=== PATIENT | female | born 1975 | race Caucasian/White ===

== ENCOUNTER 2016-09-28 00:58 | Emergency (ER) | payer MEDICAID ==
[2016-09-28] MEDS ORDERED: KETOROLAC TROMETHAMINE 60 MG/2 ML SDV IM ONE (03:41)
[2016-09-28] MEDS ORDERED: SULFAMETHOXAZOLE/TRIMETHOPRIM 800-160 MG TABLET PO ONE (03:45)
--- NOTE | 2016-09-28 03:50 | ER Document Report ---
ED Skin Rash/Insect Bite/Abscs - General Chief Complaint: Abscess Stated Complaint: INSECT BITE-LOWER LEFT LEG PAIN Mode of Arrival: Ambulatory Information source: Patient Notes: Patient is a 41-year-old female who presents to the ER today for possible developing abscess on her left lower leg. Patient states that she thinks she was bitten by a spider because she has been bitten by spiders before , however she did not see a spider bite her this time. She denies any fevers, chills, drainage from the area. She states that it is painful. TRAVEL OUTSIDE OF THE [place] IN LAST 30 DAYS: No - Related Data Allergies/Adverse Reactions: hydrocodone bitartrate [From Vicodin] Allergy (Verified 09/28/16 01:04) tramadol [Tramadol] Allergy (Verified 09/28/16 01:04) Past Medical History - General Information source: Patient - Social History Smoking Status: Never Smoker Chew tobacco use (# tins/day): No Frequency of alcohol use: None Drug Abuse: None Family History: Reviewed & Not Pertinent Patient has suicidal ideation: No Patient has homicidal ideation: No - Past Medical History Cardiac Medical History: Denies: Hx Atrial Fibrillation, Hx Coronary Artery Disease, Hx Heart Attack, Hx Hypertension Pulmonary Medical History: Denies: Hx Asthma, Hx Bronchitis, Hx COPD, Hx Pneumonia Neurological Medical History: Reports: Hx Migraine, Hx Seizures. Denies: Hx Cerebrovascular Accident Endocrine Medical History: Reports: Hx Hypothyroidism. Denies: Hx Diabetes Mellitus Type 1, Hx Diabetes Mellitus Type 2 GI Medical History: Reports: Hx Gastroesophageal Reflux Disease Musculoskeltal Medical History: Denies Hx Arthritis Psychiatric Medical History: Reports: Hx Depression Past Surgical History: Reports: Hx Cholecystectomy - 07/08/12, Hx Tubal Ligation. Denies: Hx Pacemaker - Immunizations Hx Diphtheria, Pertussis, Tetanus Vaccination: Yes Review of Systems - Review of Systems Constitutional: No symptoms reported EENT: No symptoms reported Cardiovascular: No symptoms reported Respiratory: No symptoms reported Gastrointestinal: No symptoms reported Genitourinary: No symptoms reported Female Genitourinary: No symptoms reported Musculoskeletal: No symptoms reported Skin: See HPI Hematologic/Lymphatic: No symptoms reported Neurological/Psychological: No symptoms reported Physical Exam - Vital signs Vitals: Temp Pulse Resp BP Pulse Ox 97.7 F 111 H 20 127/81 H 100 09/28/16 01:04 09/28/16 01:04 09/28/16 01:04 09/28/16 01:04 09/28/16 01:04 - Notes Notes: PHYSICAL EXAMINATION: GENERAL: Well-appearing and in no acute distress. HEAD: Atraumatic, normocephalic. EYES: Pupils equal round and reactive to light, extraocular movements intact, sclera anicteric, conjunctiva are normal. NECK: Normal range of motion, supple without lymphadenopathy LUNGS: CTAB and equal. No wheezes rales or rhonchi. HEART: Regular rate and rhythm without murmurs EXTREMITIES: Normal range of motion, no pitting edema. No cyanosis. NEUROLOGICAL: Cranial nerves grossly intact. Normal sensory/motor exams. PSYCH: Normal mood, normal affect. SKIN: Warm, Dry, normal turgor, small sore to left lower anterior leg with no drainage, fluctuance or induration, mild erythema surrounding with excoriation present, 2 other small sores to left ankle Course - Re-evaluation Re-evalutation: 09/28/16 03:50 sore actually has more of the appearance of something pt picked at herself and caused, will place her on bactrim. She asked for dilaudid here in the ER but doesn't actually appear to be in any pain. - Vital Signs Vital signs: Temp Pulse Resp BP Pulse Ox 97.7 F 111 H 20 127/81 H 100 09/28/16 01:04 09/28/16 01:04 09/28/16 01:04 09/28/16 01:04 09/28/16 01:04 Discharge - Discharge Clinical Impression: Skin infection Condition: Stable Disposition: HOME, SELF-CARE Additional Instructions: Return immediately for any new or worsening symptoms. Follow up with primary care provider, call tomorrow to make followup appointment. Prescriptions: Sulfamethoxazole/Trimethoprim [Bactrim Ds Tablet] 1 each PO BID #20 tablet
[2016-09-28 04:19] VITALS: BP 123/80
== END 2016-09-28 04:10 | disposition home or self-care (01) ==
LOC: ER 00:58
DX: L08.9 Local infection of the skin and subcutaneous tissue, unspecified (principal); Z88.5 Allergy status to narcotic agent
CPT/HCPCS: 99282

== ENCOUNTER → 2016-11-21 | Day surgery (SDC) | payer MEDICAID ==
[~2016-11-21] MED LIST: DIAZEPAM 5 MG TABLET ONE
== END ==
LOC: RAD 12:59
PROVIDERS: ATTEND Orthopaedic Surgery
PROC: BQ00ZZZ Plain Radiography of Right Hip (ICD-10-PCS; principal; 2016-11-21)
DX: M25.551 Pain in right hip (principal)
CPT/HCPCS: 73722; 73525; 77002; A9576; J3490

== ENCOUNTER 2016-12-28 10:08 | Day surgery (SDC) | payer MEDICAID ==
[2016-12-21 08:53] LABS: ABSOLUTE EOSINOPHILS # (AUTO) 0.1 10^3/uL (0.0-0.6); ABSOLUTE LYMPHOCYTES (AUTO) 1.3 10^3/uL (0.5-4.7); ABSOLUTE MONOCYTES (AUTO) 0.3 10^3/uL (0.1-1.4); ABSOLUTE NEUT (AUTO) 2.8 10^3/uL (1.7-8.2); BASOPHILS % (AUTO) 0.8 % (0-2); HEMATOCRIT 38.1 % (36.0-47.0); HEMOGLOBIN 13.1 g/dL (12.0-15.5); HGB HCT DIFFERENCE 1.2; LYMPHOCYTES % (AUTO) 28.5 % (13-45); MEAN CORPUSCULAR HEMOGLOBIN 29.1 pg (27.0-33.4); MEAN CORPUSCULAR HGB CONC 34.3 g/dL (32.0-36.0); MEAN CORPUSCULAR VOLUME 85 fl (80-97); MONOCYTES % (AUTO) 6.2 % (3-13); RED BLOOD COUNT 4.49 10^6/uL (3.72-5.28); RED CELL DISTRIBUTION WIDTH 13.3 % (11.5-14.0); SEGMENTED NEUTROPHILS % (AUTO) 61.5 % (42-78); WHITE BLOOD COUNT 4.5 10^3/uL (4.0-10.5)
[2016-12-21 09:17] LABS: ANION GAP 16 (5-19); BLOOD UREA NITROGEN 9 mg/dL (7-20); CALCIUM 9.6 mg/dL (8.4-10.2); CARBON DIOXIDE 24 mmol/L (22-30); CHLORIDE 104 mmol/L (98-107); CREATININE RESULT 0.72 mg/dL (0.52-1.25); GLUCOSE 94 mg/dL (75-110); POTASSIUM 4.8 mmol/L (3.6-5.0); SODIUM 144.2 mmol/L (137-145)
--- NOTE | 2016-12-21 10:53 | EKG REPORT ---
SEVERITY:- BORDERLINE ECG - SINUS RHYTHM BORDERLINE T WAVE ABNORMALITIES : Confirmed by: Yomi Coronel 21-Dec-2016 10:52:49
[2016-12-21 18:35] LABS: APPEARANCE,URINE SLIGHTLY-CLOUDY; BILIRUBIN,URINE NEGATIVE (NEGATIVE); GLUCOSE, URINE NEGATIVE (NEGATIVE); KETONES,URINE NEGATIVE (NEGATIVE); LEUKOCYTE ESTERASE,URINE LARGE (NEGATIVE); NITRITE,URINE NEGATIVE (NEGATIVE); PROTEIN,URINE 30 mg/dL (NEGATIVE); URINE SPECIFIC GRAVITY 1.024
[~2016-12-28 10:08] MED LIST changes: +ACETAMINOPHEN 100 ML IV ONE; +BUPIVACAINE HCL 0.5 % INJ/PF 30 ML SDV ONE; +CEFAZOLIN 2 GM/D5W RTU 2 GM/50 ML RTUPB IV PRN; -DIAZEPAM 5 MG TABLET ONE; +EPINEPHRINE INJ/PF 1 MG/1 ML AMPULE ONE; +FENTANYL CITRATE INJ/PF 250 MCG/5 ML AMPULE ONE; +LIDOCAINE 0.5% INJ-PF (5 MG/ML) 50 ML SDV SUBCUT PRN; +MIDAZOLAM 2 MG/2 ML INJ ONE; +MORPHINE SULFATE 10 MG/ML INJ ONE; +PROPOFOL INJ 200 MG/20 ML VIAL IV ONE; +RINGERS SOLUTION,LACTATED 1,000 ML IV PRN
[2016-12-28 11:06] LABS: APPEARANCE,URINE SLIGHTLY-CLOUDY; BILIRUBIN,URINE NEGATIVE (NEGATIVE); GLUCOSE, URINE NEGATIVE (NEGATIVE); KETONES,URINE NEGATIVE (NEGATIVE); LEUKOCYTE ESTERASE,URINE TRACE (NEGATIVE); NITRITE,URINE NEGATIVE (NEGATIVE); PROTEIN,URINE NEGATIVE (NEGATIVE); URINE SPECIFIC GRAVITY 1.008; UROBILINOGEN,URINE NEGATIVE mg/dL (<2.0)
[2016-12-28] MEDS ORDERED: RINGERS SOLUTION,LACTATED 500 ML IV ONE (11:30)
[2016-12-28 12:25] LABS: FREE T3 3.68 pg/mL (2.77-5.27)
[2016-12-28] MEDS ORDERED: EPINEPHRINE INJ/PF 1 MG/1 ML AMPULE ONE (12:25)
[2016-12-28 12:38] LABS: THYROID STIMULATING HORMONE 8.73 uIU/mL (0.47-4.68)
[2016-12-28] MEDS ORDERED: MORPHINE SULFATE 10 MG/ML INJ IV PRN (14:11)
[2016-12-28] MEDS ORDERED: MEPERIDINE HCL/PF INJ 25 MG/1 ML DISP.SYRIN IV PRN (14:11)
[2016-12-28] MEDS ORDERED: FENTANYL CITRATE INJ/PF 100 MCG/2 ML AMPUL IV PRN ×3 (14:11)
[2016-12-28] MEDS ORDERED: PROMETHAZINE HCL INJ 25 MG/1 ML VIAL IV PRN ×2 (14:11)
[2016-12-28] MEDS ORDERED: DIPHENHYDRAMINE HCL 50 MG/ML VIAL IV PRN (14:11)
[2016-12-28] MEDS ORDERED: OXYCODONE-ACETAMINOPHEN 5-325 MG TABLET PO PRN ×2 (14:11)
[2016-12-28] MEDS: FENTANYL CITRATE INJ/PF 100 MCG/2 ML AMPUL ONE ×2 (15:05→15:10)
--- NOTE | 2016-12-28 15:36 | PDOC DISCHARGE SUMMARY ---
Discharge Summary (SDC) - Discharge Final Diagnosis: Status post right hip arthroscopy with labral repair, tendon lengthening, femoroplasty Date of Surgery: 12/28/16 Discharge Date: 12/28/16 Condition: Good Treatment or Instructions: Crutches for 4-6 weeks. Nonweightbearing 4-6 weeks. Change dressing on day 4. After changing dressing patient can shower. Applied a Band-Aid as needed after changing dressing Avoid external rotation and internal rotation of the hip and allowed to flex and extend hip tolerated Given instructions to call us if presented with increase bleeding redness, warmth, swelling or pain or drainage. Prescriptions: Oxycodone HCl/Acetaminophen [Percocet 5-325 mg Tablet] 1 - 2 tab PO ASDIR PRN # 60 tablet PRN Reason: Discharge Diet: As Tolerated Respiratory Treatments at Home: Deep Breathing/Coughing Discharge Activity: No Driving, No Lifting/Push/Pulling, Walk Frequently Home Care Assistance: None Needed Adaptive Devices on Discharge: Axillary Crutches Report the Following to Your Physician Immediately: Shortness of Breath, Vomiting, Increase in Pain, Yellow Skin, Fever over 101 Degrees, Unusual Bleeding, Redness, Swelling, Warmth, Increased Soreness, Drainage-Yellow, Drainage-Green, Drainage-Foul Smelling, Numbness
[2016-12-28] MEDS ORDERED: NEOSTIGMINE METHYLSULFATE 10 MG/10 ML VIAL ONE (15:53)
[2016-12-28] MEDS ORDERED: GLYCOPYRROLATE INJ 0.4 MG/2 ML VIAL ONE (15:53)
[2016-12-28] MEDS ORDERED: METOCLOPRAMIDE HCL INJ/PF 10 MG/2 ML SDV ONE (15:53)
[2016-12-28] MEDS ORDERED: DEXAMETHASONE SOD PHOSPHATE INJ 4 MG/1 ML VIAL ONE (15:53)
[2016-12-28] MEDS ORDERED: LIDOCAINE 2% INJ-PF (20 MG/ML) 10 ML AMPUL ONE (15:53)
[2016-12-28] MEDS ORDERED: ONDANSETRON HCL INJ/PF 4 MG/2 ML SDV ONE (15:53)
[2016-12-28] MEDS ORDERED: OXYCODONE-ACETAMINOPHEN 5-325 MG TABLET ONE (16:07)
[2016-12-28] MEDS ORDERED: ONDANSETRON 4 MG TAB.RAPDIS PO PRN (16:10)
[2016-12-28] MEDS ORDERED: ONDANSETRON 4 MG TAB.RAPDIS ONE (16:29)
[2016-12-28] MEDS ORDERED: OXYCODONE-ACETAMINOPHEN 5-325 MG TABLET PO ONE (16:30)
[2016-12-28 17:23] VITALS: BP 116/68
--- NOTE | 2017-01-16 10:16 | OPERATIVE REPORT E ---
Operative Report NAME: LATONYA BLANCO : 1975 AGE: 41Y DATE OF SURGERY: 12/28/2016 ROOM: PREOPERATIVE DIAGNOSIS: Right hip labral tear. POSTOPERATIVE DIAGNOSIS: Right hip labral tear. OPERATION: Right hip arthroscopy with labral repair x2 anchors, labral debridement, femoroplasty, iliopsoas tendon fractional lengthening. SURGEON: JOHN JACQUES M.D. COMPLICATIONS: None. DISPOSITION: Stable to PACU. IMPLANT USED: Arthrex BioComposite anchor x2. DESCRIPTION OF PROCEDURE: Patient was brought to the operating room, induced and intubated in a supine position. Patient was placed in the hip distraction system with a well-padded perineal post. Patient was placed, foot was secured, and then traction was applied. Under C-arm we were able to dislocate the right hip. We proceeded to prep and drape the right hip in a normal sterile surgical fashion. We proceeded then to do our first portal using a spinal needle and entering into the hip joint under C-arm guidance. Arthrogram was done showing proper placement. At this point I proceeded then to place a nitinol wire and remove the spinal needle. I used a #15 blade to establish the portal and then I proceeded to dilate the portal. The scope was introduced and then under direct visualization we were able to establish the anterior portal. Through the anterior portal I was able to do part of my arthrotomy anteriorly. I proceeded then to switch the scope into the anterior portal and the knife on the lateral portal and completed my arthrotomy. Once again I switched back using switching sticks and placed my camera in the lateral portal and worked through the anterior portal. Through the anterior portal I was able then to debride part of the labral tear and then on the detached portion I was able then to use the Hip Labral Scorpion to secure the torn labrum and secured them in SwiveLock. I drilled 2 tunnels and then placed 2 anchors, securing the labral tear portion. Through the anterior portal I was able then to expose the iliopsoas tendon and do fractional lengthening with the radiofrequency ablator. Once I was satisfied with the portion of surgery in the central compartment I released traction and then exposed the peripheral compartment where I exposed the small irregularity in the femoral neck. I used an oval bur to do then my femoroplasty which was done from anterior to posterior. Range of motion showed no impingement. At this point fluid from the hip was removed and the capsule was now closed. The 2 portal sites were closed with 3-0 nylon and then covered with Xeroform, 4 x 4 dressing and Medipore tape. Patient was then extubated and transferred to PACU in stable condition. DICTATING PHYSICIAN: Darren SHIELDS [id number] PHY#: [id number] ID: [id number] JOB#: [id number] ACCT: [id number] cc:JOHN JACQUES M.D. >
== END 2016-12-28 17:10 | disposition home or self-care (01) ==
LOC: OROUT 10:08
PROVIDERS: ATTEND Orthopaedic Surgery
PROC: 0QB74ZZ Excision of Left Upper Femur, Percutaneous Endoscopic Approach (ICD-10-PCS; 2016-12-28)
PROC: 0L8J4ZZ Division of Right Hip Tendon, Percutaneous Endoscopic Approach (ICD-10-PCS; 2016-12-28)
PROC: 0SQ94ZZ Repair Right Hip Joint, Percutaneous Endoscopic Approach (ICD-10-PCS; principal; 2016-12-28 12:30)
DX: M25.551 Pain in right hip (principal); M24.151 Other articular cartilage disorders, right hip; G40.909 Epilepsy, unspecified, not intractable, without status epilepticus; F90.9 Attention-deficit hyperactivity disorder, unspecified type; F31.9 Bipolar disorder, unspecified; F41.9 Anxiety disorder, unspecified; E06.3 Autoimmune thyroiditis; D64.9 Anemia, unspecified; Z88.5 Allergy status to narcotic agent; Z79.899 Other long term (current) drug therapy; Z79.891 Long term (current) use of opiate analgesic
CPT/HCPCS: 93005; 36415 ×2; 84439; 84443; 85025; 81025; 80048; 81001 ×2; 84481; 73501; 71020; 93010; 29916; 29914; 27299; J2250; J1100; J0171; S0119; J3010 ×2; J3490 ×2; J2765; J2270; J2405; J2704; J0690; J0131; 1202

== ENCOUNTER 2017-01-06 17:53 | Emergency (ER) | payer MEDICAID ==
[2017-01-06] MEDS ORDERED: ACETAMINOPHEN 325 MG TABLET PO ONE (18:28)
--- NOTE | 2017-01-06 18:51 | ER Document Report ---
ED Medical Screen (RME) - General Chief Complaint: Fall Stated Complaint: FALL/LEG PAIN Notes: Patient had right hip surgery by Dr. Farrar on December 28. Patient says that she was told she found some bone spurs and some ligament injury. She has some blue/ purple colored areas of the right leg that "come and go" since yesterday.. She has fallen 6 times today, two of those times landing on the right hip where she had the surgery. Since those falls, she's had intermittent numbness and tingling from the right hip and buttock area down to the anterior right thigh and to the knee, but no lower. Patient has much pain whenever the right hip is moved. She does have Percocets prescribed for pain. The purple/blue color that the patient is seeing looks like expected subcutaneous blood deposit around the sutured incision of the proximal anterior right thigh. I don't see any other colored areas now. Patient has no tenderness of the right lower leg. She has an excellent dorsalis pedis pulse in that foot. TRAVEL OUTSIDE OF THE [place] IN LAST 30 DAYS: No - Related Data Allergies/Adverse Reactions: tramadol [Tramadol] Allergy (Verified 12/20/16 08:57) Seizures hydrocodone bitartrate [From Vicodin] Adverse Reaction (Verified 12/20/16 08:57) Hives Past Medical History - Past Medical History Cardiac Medical History: Denies: Hx Atrial Fibrillation, Hx Coronary Artery Disease, Hx Heart Attack, Hx Hypertension Pulmonary Medical History: Denies: Hx Asthma, Hx Bronchitis, Hx COPD, Hx Pneumonia Neurological Medical History: Reports: Hx Migraine, Hx Seizures - LAST SEIZURE 1 YR AGO. Denies: Hx Cerebrovascular Accident Endocrine Medical History: Reports: Hx Hypothyroidism. Denies: Hx Diabetes Mellitus Type 1, Hx Diabetes Mellitus Type 2 Renal/ Medical History: Denies: Hx Peritoneal Dialysis GI Medical History: Reports: Hx Gastroesophageal Reflux Disease Musculoskeltal Medical History: Denies Hx Arthritis Psychiatric Medical History: Reports: Hx Depression Past Surgical History: Reports: Hx Cholecystectomy - 07/08/12, Hx Tubal Ligation. Denies: Hx Pacemaker - Immunizations Hx Diphtheria, Pertussis, Tetanus Vaccination: Yes Physical Exam - Vital signs Vitals: Temp Pulse Resp BP Pulse Ox 98.3 F 122 H 18 124/69 100 01/06/17 17:54 01/06/17 17:54 01/06/17 17:54 01/06/17 17:54 01/06/17 17:54 Course - Vital Signs Vital signs: Temp Pulse Resp BP Pulse Ox 98.3 F 122 H 18 124/69 100 01/06/17 17:54 01/06/17 17:54 01/06/17 17:54 01/06/17 17:54 01/06/17 17:54
[2017-01-06] MEDS ORDERED: NORMAL SALINE 1000 ML 1,000 ML IV ONE (19:20)
--- NOTE | 2017-01-06 19:20 | ER Document Report ---
HPI - HPI Patient complains to provider of: right anterior thigh and hip pain Onset: This afternoon Onset/Duration: Gradual Quality of pain: Throbbing Pain Level: 5 Context: 41-year-old female complaining of exacerbation of her postop daily right anterior hip pain. Dr. Farrar did a no head hit in labrum repair December 28. She uses crutches but slipped and fell today 6 times trying to get to the bathroom and get something to eat. Her daughter went back to work today. sHe takes 5 mg of Percocet 3 times a day. No head injury or headache. Associated Symptoms: None Exacerbated by: Movement Relieved by: Denies Similar symptoms previously: Yes Recently seen / treated by doctor: Yes - ROS ROS below otherwise negative: Yes Systems Reviewed and Negative: Yes All other systems reviewed and negative - REPRODUCTIVE LMP: [id number] Reproductive: DENIES: : - DERM Skin Color: Normal Past Medical History - General Information source: Patient - Social History Smoking Status: Unknown if Ever Smoked Frequency of alcohol use: None Drug Abuse: None Lives with: Family - Daughter Family History: Reviewed & Not Pertinent Patient has suicidal ideation: No Patient has homicidal ideation: No Neurological Medical History: Reports: Hx Migraine, Hx Seizures - LAST SEIZURE 1 YR AGO Endocrine Medical History: Reports: Hx Hypothyroidism Renal/ Medical History: Denies: Hx Peritoneal Dialysis GI Medical History: Reports: Hx Gastroesophageal Reflux Disease Psychiatric Medical History: Reports: Hx Depression Past Surgical History: Reports: Hx Cholecystectomy - 07/08/12, Hx Tubal Ligation - Immunizations Hx Diphtheria, Pertussis, Tetanus Vaccination: Yes Vertical Provider Document - CONSTITUTIONAL Agree With Documented VS: Yes Exam Limitations: No Limitations Notes: Looks dry - INFECTION CONTROL TRAVEL OUTSIDE OF THE [place] IN LAST 30 DAYS: No - HEENT HEENT: Normal ENT Exam - Except she looks dry and her mucous membranes - NECK Neck: Supple. negative: Lymphadenopathy-Left, Lymphadenopathy-Right - RESPIRATORY Respiratory: Breath Sounds Normal, No Respiratory Distress O2 Sat by Pulse Oximetry: 100 - CARDIOVASCULAR Cardiovascular: Regular Rate, Regular Rhythm - GI/ABDOMEN Gastrointestinal: Abdomen Soft, Abdomen Non-Tender - MUSCULOSKELETAL/EXTREMETIES Musculoskeletal/Extremeties: Tender, Eccymosis Notes: Soft tissue swelling with ecchymosis anterior surgery With no large hematoma, no erythema take either surgical sites. Nontender bone. X-ray is negative. - NEURO Level of Consciousness: Awake, Alert, Appropriate - DERM Integumentary: Warm, Dry Course - Re-evaluation Re-evalutation: 01/06/17 20:05 I discussed with the patient after looking her narcotic records up on the [place] controlled substance reporting that she was prescribed 10 mg of Percocet from Dr. Freeman 180 given every month. Her last prescription was filled on December 12 and she states she'll be running out of that in 2 days which is early. When I ask her originally how much pain medication she took for this she said she takes 5 mg 3 times a day. She then at this point tells me now it is really 15 mg 3 times a day and I told her that because of this I would not be giving her any narcotic pain medication while she was here in the emergency department. But I am giving her the IV fluid since she looks dehydrated. 01/06/17 21:14 Feels much better after IV fluid and she also ate a dinner that I heated up for her, pulse is 90 - Vital Signs Vital signs: Temp Pulse Resp BP Pulse Ox 98.3 F 122 H 18 124/69 100 01/06/17 17:54 01/06/17 17:54 01/06/17 17:54 01/06/17 17:54 01/06/17 17:54 Discharge - Discharge Clinical Impression: right leg brusing after fall, unsteady gait with the crutches, Dehydration Condition: Good Disposition: HOME, SELF-CARE Instructions: Contusion ([facility]), Dehydration ([facility]) Additional Instructions: Drink 2 L of water per day See Dr. Leni solo for follow-up Make sure you eat her meals to repair your hip I recommend using a walker instead of the crutches so you be more stable and won 't fall Return to the emergency room any concerns. Please complete the patient satisfaction survey if you get one, and return it.. If you do not receive a survey, then you can go to the [facility] website, [email or web address] and place your comments about your very good care. Thank you very much. It was a pleasure being your medical provider today. Prescriptions: Walker [Folding Walker] 1 each MC ASDIR PRN #1 each PRN Reason: Referrals: LIZETH JEFFERSON MD [Primary Care Provider] - Follow up as needed
[2017-01-06] MEDS ORDERED: OXYCODONE HCL IR 5 MG TABLET PO ONE (19:56)
[2017-01-06 21:05] VITALS: BP 108/61
== END 2017-01-06 21:40 | disposition home or self-care (01) ==
LOC: ER 17:53
DX: S80.11XA Contusion of right lower leg, initial encounter (principal); W01.0XXA Fall on same level from slipping, tripping and stumbling without subsequent striking against object, initial encounter; M25.551 Pain in right hip; R26.81 Unsteadiness on feet; E86.0 Dehydration; Z98.890 Other specified postprocedural states; Z79.891 Long term (current) use of opiate analgesic
CPT/HCPCS: 99283; 73502; J3490

== ENCOUNTER → 2017-01-07 | Outpatient (CLI) | payer MEDICAID ==
[2017-01-07 09:40] LABS: HEMOGLOBIN 10.3 g/dL (12.0-15.5); HGB HCT DIFFERENCE 0.9; MEAN CORPUSCULAR HEMOGLOBIN 29.3 pg (27.0-33.4); MEAN CORPUSCULAR HGB CONC 34.4 g/dL (32.0-36.0); MEAN CORPUSCULAR VOLUME 85 fl (80-97); RED BLOOD COUNT 3.53 10^6/uL (3.72-5.28); WHITE BLOOD COUNT 4.6 10^3/uL (4.0-10.5)
[2017-01-07 10:02] LABS: ALANINE AMINOTRANSFERASE 16 U/L (9-52); ALBUMIN 3.7 g/dL (3.5-5.0); ALKALINE PHOSPHATASE 51 U/L (38-126); ANION GAP 12 (5-19); ASPARTATE AMINO TRANSFERASE 20 U/L (14-36); BILIRUBIN,DIRECT 0.2 mg/dL (0.0-0.4); BILIRUBIN,TOTAL 0.3 mg/dL (0.2-1.3); BLOOD UREA NITROGEN 6 mg/dL (7-20); CALCIUM 8.6 mg/dL (8.4-10.2); CARBON DIOXIDE 25 mmol/L (22-30); CHLORIDE 108 mmol/L (98-107); CREATININE RESULT 0.53 mg/dL (0.52-1.25); Direct HDL 44 mg/dL (>40); GLUCOSE 91 mg/dL (75-110); POTASSIUM 4.5 mmol/L (3.6-5.0); SODIUM 144.7 mmol/L (137-145); TRIGLYCERIDES 67 mg/dL (<150)
[2017-01-07 10:13] LABS: DIRECT LDL 74 mg/dL (<100)
[2017-01-08 07:11] LABS: THYROXINE (T4) 3.7 ug/dL (4.5-12.0); VITAMIN D 25-HYDROXY 21.5 ng/mL (30.0-100.0)
== END ==
LOC: OD 09:03
DX: F31.81 Bipolar II disorder (principal)
CPT/HCPCS: 36415; 80053; 80061; 82306; 83036; 84436; 84443; 85027

== ENCOUNTER → 2017-07-08 | Outpatient (CLI) | payer MEDICAID ==
[2017-07-08 10:28] LABS: ABSOLUTE EOSINOPHILS # (AUTO) 0.1 10^3/uL (0.0-0.6); ABSOLUTE LYMPHOCYTES (AUTO) 1.6 10^3/uL (0.5-4.7); ABSOLUTE MONOCYTES (AUTO) 0.4 10^3/uL (0.1-1.4); ABSOLUTE NEUT (AUTO) 4.5 10^3/uL (1.7-8.2); BASOPHILS % (AUTO) 0.6 % (0-2); EOSINOPHILS % (AUTO) 2.3 % (0-6); HEMATOCRIT 34.8 % (36.0-47.0); HEMOGLOBIN 11.8 g/dL (12.0-15.5); HGB HCT DIFFERENCE 0.6; LYMPHOCYTES % (AUTO) 23.6 % (13-45); MEAN CORPUSCULAR HEMOGLOBIN 28.8 pg (27.0-33.4); MEAN CORPUSCULAR VOLUME 85 fl (80-97); MONOCYTES % (AUTO) 6.4 % (3-13); RED BLOOD COUNT 4.12 10^6/uL (3.72-5.28); RED CELL DISTRIBUTION WIDTH 14.2 % (11.5-14.0); SEGMENTED NEUTROPHILS % (AUTO) 67.1 % (42-78); WHITE BLOOD COUNT 6.6 10^3/uL (4.0-10.5)
[2017-07-08 10:59] LABS: ALANINE AMINOTRANSFERASE 23 U/L (9-52); ALBUMIN 4.4 g/dL (3.5-5.0); ALKALINE PHOSPHATASE 59 U/L (38-126); ANION GAP 10 (5-19); ASPARTATE AMINO TRANSFERASE 15 U/L (14-36); BILIRUBIN,DIRECT 0.4 mg/dL (0.0-0.4); BILIRUBIN,TOTAL 0.4 mg/dL (0.2-1.3); BLOOD UREA NITROGEN 10 mg/dL (7-20); CALCIUM 9.4 mg/dL (8.4-10.2); CARBON DIOXIDE 29 mmol/L (22-30); CHLORIDE 104 mmol/L (98-107); CHOLESTEROL 157.39 mg/dL (0-200); CREATININE RESULT 0.67 mg/dL (0.52-1.25); Direct HDL 55 mg/dL (>40); GLUCOSE 77 mg/dL (75-110); POTASSIUM 4.7 mmol/L (3.6-5.0); TOTAL PROTEIN 6.8 g/dL (6.3-8.2); TRIGLYCERIDES 97 mg/dL (<150)
[2017-07-08 11:10] LABS: DIRECT LDL 86 mg/dL (<100)
== END ==
LOC: OD 08:44
PROVIDERS: ATTEND Family Medicine Geriatric Medicine
DX: D64.9 Anemia, unspecified (principal); E03.9 Hypothyroidism, unspecified; E55.9 Vitamin D deficiency, unspecified; Z79.899 Other long term (current) drug therapy
CPT/HCPCS: 36415; 80053; 80061; 82306; 84443; 85025

== ENCOUNTER 2017-07-11 03:08 | Emergency (ER) | payer OTHER, MEDICAID ==
[2017-07-11] MEDS ORDERED: NALOXONE HCL INJ/PF 0.4 MG/1 ML SDV ONE (03:34)
[2017-07-11 03:57] LABS: ABSOLUTE EOSINOPHILS # (AUTO) 0.2 10^3/uL (0.0-0.6); ABSOLUTE LYMPHOCYTES (AUTO) 1.5 10^3/uL (0.5-4.7); ABSOLUTE MONOCYTES (AUTO) 0.9 10^3/uL (0.1-1.4); BASOPHILS % (AUTO) 0.3 % (0-2); EOSINOPHILS % (AUTO) 1.8 % (0-6); HEMATOCRIT 34.8 % (36.0-47.0); HEMOGLOBIN 12.1 g/dL (12.0-15.5); HGB HCT DIFFERENCE 1.5; LYMPHOCYTES % (AUTO) 13.9 % (13-45); MEAN CORPUSCULAR HEMOGLOBIN 29.1 pg (27.0-33.4); MEAN CORPUSCULAR HGB CONC 34.7 g/dL (32.0-36.0); MEAN CORPUSCULAR VOLUME 84 fl (80-97); MONOCYTES % (AUTO) 8.9 % (3-13); RED BLOOD COUNT 4.14 10^6/uL (3.72-5.28); SEGMENTED NEUTROPHILS % (AUTO) 75.1 % (42-78); WHITE BLOOD COUNT 10.6 10^3/uL (4.0-10.5)
[2017-07-11 04:22] LABS: ALANINE AMINOTRANSFERASE 32 U/L (9-52); ALBUMIN 4.6 g/dL (3.5-5.0); ALKALINE PHOSPHATASE 83 U/L (38-126); ANION GAP 11 (5-19); ASPARTATE AMINO TRANSFERASE 35 U/L (14-36); BILIRUBIN,DIRECT 0.3 mg/dL (0.0-0.4); BILIRUBIN,TOTAL 0.5 mg/dL (0.2-1.3); BLOOD UREA NITROGEN 6 mg/dL (7-20); CALCIUM 9.3 mg/dL (8.4-10.2); CARBON DIOXIDE 31 mmol/L (22-30); CHLORIDE 98 mmol/L (98-107); CREATININE RESULT 0.64 mg/dL (0.52-1.25); GLUCOSE 109 mg/dL (75-110); MAGNESIUM 2.1 mg/dL (1.6-2.3); POTASSIUM 4.2 mmol/L (3.6-5.0); SODIUM 139.8 mmol/L (137-145)
[2017-07-11 04:23] LABS: ALCOHOL < 10 mg/dL (NONE DETECTED)
--- NOTE | 2017-07-11 04:25 | ER Document Report ---
ED General - General Chief Complaint: Altered Mental Status Stated Complaint: ALTERED MENTAL STATUS Time Seen by Provider: 07/11/17 03:37 Mode of Arrival: Medic Information source: Patient, Relative, Emergency Med Personnel TRAVEL OUTSIDE OF THE [place] IN LAST 30 DAYS: No - HPI Notes: Patient is a 42-year-old female history of chronic pain and narcotic use and abuse presents the emergency department with report that she was at a green party for her friend last evening and then later was found by family after she came home unconscious on the bathroom floor. The patient had an abrasion on her face. There was no observed seizure activity, but there was a question if the patient may have had a seizure previously. The patient did not bite her tongue and she denies any headache or neck pain or chest pain or difficulty breathing or significant change in her chronic back pain. The patient initially was noted to be very somnolent and would trail off and her discussion, although her oxygen saturations and other vital signs were stable. Patient was given 0.2 mg of IV Narcan and She awakened and felt cold and was able to give a more relevant history. Patient denied any intentional overdose and reported no suicidal or homicidal ideation or hallucinations. - Related Data Allergies/Adverse Reactions: tramadol [Tramadol] Allergy (Verified 12/20/16 08:57) Seizures hydrocodone bitartrate [From Vicodin] Adverse Reaction (Verified 12/20/16 08:57) Hives Past Medical History - General Information source: Patient Cannot obtain history due to: Unstable vital signs - Social History Smoking Status: Former Smoker Frequency of alcohol use: Occasional Drug Abuse: Cocaine Lives with: Family Family History: Reviewed & Not Pertinent - Past Medical History Cardiac Medical History: Denies: Hx Atrial Fibrillation, Hx Coronary Artery Disease, Hx Heart Attack, Hx Hypertension Pulmonary Medical History: Denies: Hx Asthma, Hx Bronchitis, Hx COPD, Hx Pneumonia Neurological Medical History: Reports: Hx Migraine, Hx Seizures - LAST SEIZURE 1 YR AGO. Denies: Hx Cerebrovascular Accident Endocrine Medical History: Reports: Hx Hypothyroidism. Denies: Hx Diabetes Mellitus Type 1, Hx Diabetes Mellitus Type 2 Renal/ Medical History: Denies: Hx Peritoneal Dialysis GI Medical History: Reports: Hx Gastroesophageal Reflux Disease Musculoskeltal Medical History: Denies Hx Arthritis Psychiatric Medical History: Reports: Hx Depression Past Surgical History: Reports: Hx Cholecystectomy - 10/16/12, Hx Tubal Ligation. Denies: Hx Pacemaker - Immunizations Hx Diphtheria, Pertussis, Tetanus Vaccination: Yes Review of Systems - Review of Systems Notes: REVIEW OF SYSTEMS: CONSTITUTIONAL : Denies fever, chills, or sweats. EENT: Denies eye, ear, throat symptoms. Denies nasal or sinus congestion or discharge. Denies throat, tongue, or mouth swelling or difficulty swallowing. CARDIOVASCULAR: Denies chest pain. Denies palpitations or racing or irregular heart beat. Denies ankle edema. RESPIRATORY: Denies cough, cold, or chest congestion. Denies shortness of breath, difficulty breathing, or wheezing. GASTROINTESTINAL: Denies abdominal pain or distention. Denies nausea, vomiting , or diarrhea. Denies blood in vomitus, stools, or per rectum. Denies black, tarry stools. Denies constipation. GENITOURINARY: Denies difficulty urinating, painful urination, burning, frequency, blood in urine, or discharge. FEMALE GENITOURINARY: Denies vaginal bleeding, heavy or abnormal periods, irregular periods. Denies vaginal discharge or odor. MUSCULOSKELETAL: Denies back or neck pain or stiffness. Denies joint pain or swelling. SKIN: Denies rash, lesions or sores. HEMATOLOGIC : Denies easy bruising or bleeding. LYMPHATIC: Denies swollen, enlarged glands. NEUROLOGICAL: Denies dizziness or lightheadedness. Denies headache. Denies weakness or paralysis or loss of use of either side. Denies problems with gait or speech. Denies sensory loss, numbness, or tingling. Denies seizures. PSYCHIATRIC: Denies anxiety or stress. Denies depression, suicidal ideation, or homicidal ideation. ALL OTHER SYSTEMS REVIEWED AND NEGATIVE. Dictation was performed using [id number] voice recognition software Physical Exam - Vital signs Vitals: Pulse Ox 99 07/11/17 03:59 - Notes Notes: PHYSICAL EXAMINATION: GENERAL: Well-appearing, well-nourished and in no acute distress. HEAD: Contusion and abrasion over the nose, but no bony deformity or crepitance. The patient also may have bitten the inside edge of her upper lip, but there is no active bleeding or obvious significant laceration. EYES: Pupils equal round and reactive to light but are pinpoint on initial evaluation. extraocular movements intact, conjunctiva are normal. ENT: Nares patent, oropharynx clear without exudates. Moist mucous membranes. NECK: Normal range of motion, supple without lymphadenopathy LUNGS: Breath sounds clear to auscultation bilaterally and equal. No wheezes rales or rhonchi. HEART: Regular rate and rhythm without murmurs ABDOMEN: Soft, nontender, nondistended abdomen. No guarding, no rebound. No masses appreciated. Female : deferred Musculoskeletal: Normal range of motion, no pitting or edema. No cyanosis. NEUROLOGICAL: Cranial nerves grossly intact. Normal sensory, motor exams. initially patient had slurred speech., But this improved after Narcan. PSYCH: Normal mood, normal affect. SKIN: Warm, Dry, normal turgor, no rashes or lesions noted. Course - Re-evaluation Re-evalutation: 07/11/17 07:47 Patient was given 0.2 mg of Narcan. The patient was confronted about her narcotic use and her cocaine abuse. Patient was watched for several hours and had stable vital signs and good O2 sats. Patient was ambulatory without complaint. Discussion was undertaken with the patient further about possibly needing rehab and/or detox and other support measures. The patient politely declined. No evidence for acute intracranial injury or renal dysfunction or anemia or hypoglycemia. No suggestion for suicidality. Patient is not an eminent risk to herself or others at the current time. 07/11/17 07:48 - Vital Signs Vital signs: Temp Pulse Resp BP Pulse Ox 14 105/74 95 07/11/17 06:01 07/11/17 06:00 07/11/17 06:01 - Laboratory Result Diagrams: 07/11/17 03:49 07/11/17 03:49 Laboratory results interpreted by me: 07/11/17 07/11/17 07/11/17 03:49 03:49 04:15 WBC 10.6 H Hct 34.8 L Carbon Dioxide 31 H BUN 6 L Urine Blood LARGE H - EKG Interpretation by Me EKG shows normal: Sinus rhythm Additional EKG results interpreted by me: 07/11/17 04:24 EKG as interpreted by me showed sinus tachycardia heart rate of 111. There is no gross evidence for acute IN or ischemia identified. No significant change from previous EKG from 12/21/16. Discharge - Discharge Clinical Impression: Cocaine abuse Narcotic overdose Qualifiers: Encounter type: initial encounter Injury intent: accidental or unintentional Qualified Code(s): T40.601A - Poisoning by unspecified narcotics, accidental ( unintentional), initial encounter Altered mental status Qualifiers: Altered mental status type: unspecified Qualified Code(s): R41.82 - Altered mental status, unspecified Head injury Qualifiers: Encounter type: initial encounter Qualified Code(s): S09.90XA - Unspecified injury of head, initial encounter Facial abrasion Qualifiers: Encounter type: initial encounter Qualified Code(s): S00.81XA - Abrasion of other part of head, initial encounter Condition: Stable Disposition: HOME, SELF-CARE Instructions: Abrasions ([facility]), Cocaine Abuse ([facility]), Head Injury Precautions ( [facility]), Narcotic Abuse ([facility]) Additional Instructions: Stop using cocaine. Take your pain medications as instructed.
[2017-07-11 04:32] LABS: APPEARANCE,URINE CLEAR; BILIRUBIN,URINE NEGATIVE (NEGATIVE); GLUCOSE, URINE NEGATIVE (NEGATIVE); KETONES,URINE NEGATIVE (NEGATIVE); LEUKOCYTE ESTERASE,URINE NEGATIVE (NEGATIVE); NITRITE,URINE NEGATIVE (NEGATIVE); PROTEIN,URINE NEGATIVE (NEGATIVE); URINE SPECIFIC GRAVITY 1.003; UROBILINOGEN,URINE NEGATIVE mg/dL (<2.0)
[2017-07-11 04:46] LABS: URINE BARBITURATES SCREEN NEGATIVE; URINE METHADONE SCREEN NEGATIVE; URINE OPIATES LOW UNCONFIRMED POSITIVE; URINE PHENCYCLIDINE SCREEN NEGATIVE
[2017-07-11] MEDS ORDERED: NORMAL SALINE 1000 ML 1,000 ML IV ONE (05:14)
[2017-07-11] MEDS ORDERED: DIPH/PERTUSS(ACELL)/TETANUS VAC/PF 0.5 ML SYR (>=10YO) IM ONE (05:14)
[2017-07-11] MEDS ORDERED: BACITRACIN ZINC OINTMENT 15 GM TP ONE (05:15)
--- NOTE | 2017-07-11 06:00 | RADIOLOGY REPORT (SQ) ---
EXAM DESCRIPTION: CT HEAD WITHOUT COMPLETED DATE/TIME: 07/11/2017 5:48 am REASON FOR STUDY: head injury COMPARISON: None. TECHNIQUE: Axial images acquired through the brain without intravenous contrast. Images reviewed wi th bone, brain and subdural windows. Images stored on PACS. All CT scanners at this facility use dose modulation, iterative reconstruction, and/or weight based d osing when appropriate to reduce radiation dose to as low as reasonably achievable (ALARA). [facility]: Dose Right [facility]: CareDose [facility]: Dose Right [facility]: Teradose 4D [facility]: Smart [employer] RADIATION DOSE: Up-to-date CT equipment and radiation dose reduction techniques were employed. CTDIv ol: 55.2 mGy. DLP: 1084 mGy-cm. mGy. LIMITATIONS: None. FINDINGS: VENTRICLES: Normal size and contour. CEREBRUM: No mass effect. No hemorrhage. No midline shift. Normal atkinson/white matter differentiatio n. No evidence for acute territorial infarction. CEREBELLUM: No mass effect. No hemorrhage. No alteration of density. No evidence for acute infarct ion. EXTRAAXIAL SPACES: No fluid collections. ORBITS AND GLOBE: Symmetrical contour of the globes. CALVARIUM: No depressed skull fracture. PARANASAL SINUSES: No air-fluid level. SOFT TISSUES: No hematoma. IMPRESSION: No acute intracranial hemorrhage or depressed calvarial fracture. EVIDENCE OF ACUTE STROKE: NO. COMMENT: Quality ID # [id number]: Final reports with documentation of one or more dose reduction techniques (e.g., Automated exposure control, adjustment of the mA and/or kV according to patient size, use of iterative reconstruction technique) TECHNICAL DOCUMENTATION: JOB ID: [id number] [place]-64 [employer]- All Rights Reserved
[2017-07-11] MEDS ORDERED: NALOXONE HCL INJ/PF 0.4 MG/1 ML SDV IM ONE (08:29)
[2017-07-11 08:54] VITALS: BP 107/86
--- NOTE | 2017-07-11 20:16 | EKG REPORT ---
SEVERITY:- BORDERLINE ECG - SINUS TACHYCARDIA BORDERLINE RIGHT AXIS DEVIATION LOW VOLTAGE IN FRONTAL LEADS : Confirmed by: Cherri Lacy MD 11-Jul-2017 20:16:12
== END 2017-07-11 09:11 | disposition home or self-care (01) ==
LOC: ER 03:08
DX: F14.10 Cocaine abuse, uncomplicated (principal); T40.601A Poisoning by unspecified narcotics, accidental (unintentional), initial encounter; S09.90XA Unspecified injury of head, initial encounter; S00.81XA Abrasion of other part of head, initial encounter; X58.XXXA Exposure to other specified factors, initial encounter; R41.82 Altered mental status, unspecified; E03.9 Hypothyroidism, unspecified; G89.29 Other chronic pain; Z88.6 Allergy status to analgesic agent; Z90.49 Acquired absence of other specified parts of digestive tract; Z98.51 Tubal ligation status; Z23 Encounter for immunization
CPT/HCPCS: 93005; 99285; 96372; 96361; 90471; 96374; 36415; 80307 ×2; 83735; 85025; 81025; 80053; 81001; 70450; 90715; 93010; J2310; J7030; J3490

== ENCOUNTER → 2017-08-19 | Outpatient (CLI) | payer MEDICAID, OTHER ==
[2017-08-19 09:50] LABS: ABSOLUTE EOSINOPHILS # (AUTO) 0.1 10^3/uL (0.0-0.6); ABSOLUTE LYMPHOCYTES (AUTO) 1.4 10^3/uL (0.5-4.7); ABSOLUTE MONOCYTES (AUTO) 0.4 10^3/uL (0.1-1.4); ABSOLUTE NEUT (AUTO) 3.9 10^3/uL (1.7-8.2); BASOPHILS % (AUTO) 0.6 % (0-2); EOSINOPHILS % (AUTO) 2.1 % (0-6); HEMATOCRIT 36.2 % (36.0-47.0); HEMOGLOBIN 12.4 g/dL (12.0-15.5); LYMPHOCYTES % (AUTO) 24.7 % (13-45); MEAN CORPUSCULAR HEMOGLOBIN 28.7 pg (27.0-33.4); MEAN CORPUSCULAR HGB CONC 34.2 g/dL (32.0-36.0); MEAN CORPUSCULAR VOLUME 84 fl (80-97); MONOCYTES % (AUTO) 6.3 % (3-13); RED BLOOD COUNT 4.31 10^6/uL (3.72-5.28); RED CELL DISTRIBUTION WIDTH 14.3 % (11.5-14.0); SEGMENTED NEUTROPHILS % (AUTO) 66.3 % (42-78); WHITE BLOOD COUNT 5.8 10^3/uL (4.0-10.5)
== END ==
LOC: OD 08:57
PROVIDERS: ATTEND Family Medicine Geriatric Medicine
DX: D64.9 Anemia, unspecified (principal); E55.9 Vitamin D deficiency, unspecified; E03.9 Hypothyroidism, unspecified
CPT/HCPCS: 36415; 82306; 84443; 85025

== ENCOUNTER → 2017-10-04 | Day surgery (SDC) | payer MEDICAID ==
[~2017-10-04] MED LIST changes: -ACETAMINOPHEN 100 ML IV ONE; -BUPIVACAINE HCL 0.5 % INJ/PF 30 ML SDV ONE; -CEFAZOLIN 2 GM/D5W RTU 2 GM/50 ML RTUPB IV PRN; +DIAZEPAM 5 MG TABLET ONE; -EPINEPHRINE INJ/PF 1 MG/1 ML AMPULE ONE; -FENTANYL CITRATE INJ/PF 250 MCG/5 ML AMPULE ONE; -LIDOCAINE 0.5% INJ-PF (5 MG/ML) 50 ML SDV SUBCUT PRN; -MIDAZOLAM 2 MG/2 ML INJ ONE; -MORPHINE SULFATE 10 MG/ML INJ ONE; -PROPOFOL INJ 200 MG/20 ML VIAL IV ONE; -RINGERS SOLUTION,LACTATED 1,000 ML IV PRN
--- NOTE | 2017-10-04 15:27 | RADIOLOGY REPORT (SQ) ---
EXAM DESCRIPTION: ARTHRO HIP INJ W/ANESTHESIA COMPLETED DATE/TIME: 10/04/2017 2:19 pm REASON FOR STUDY: M25.551 PAIN IN RIGHT HIP M25.551 PAIN IN RIGHT HIP FLUOROSCOPY TIME: 28 seconds 3 digital right hip images saved to PACS. LIMITATIONS: None. PROCEDURE: Procedure, risks, benefits and alternatives explained to patient who then gave written c onsent. The right hip was marked and a time-out was called for correct marking verification. Entry site marked using fluoroscopic guidance. Hip prepped and draped using sterile technique. Local ane sthesia achieved using 7 mL of 1% lidocaine injection. 22 gauge spinal introduced into the joint spa ce under direct fluoroscopic visualization. Non-ionic contrast instilled to confirm intra-articular position. Dilute gadolinium solution then injected. Needle removed and entry site covered with ang rile bandage. No immediate complications noted. TECHNIQUE: Digital images acquired during fluoroscopy and stored on PACS. Patient immediately take n to the MR suite for additional imaging. INJECTION LOCATION: Right hip CONTRAST TYPE AND AMOUNT: 1 mL of Isovue-300 was injected to confirm intra-articular needle placement . This was followed by injection of 8 mL of dilute ProHance gadolinium into the right hip joint space for MR arthrogram IMPRESSION: SUCCESSFUL NEEDLE PLACEMENT AND INJECTION FOR RIGHT HIP MR ARTHROGRAM. COMMENT: Quality ID [id number]: Final reports for procedures using fluoroscopy that document radiation exp osure indices, or exposure time and number of fluorographic images (if radiation exposure indices are not available) TECHNICAL DOCUMENTATION: JOB ID: [id number] [employer]- All Rights Reserved COMPARISON: None. 11/21/2016
--- NOTE | 2017-10-04 16:41 | RADIOLOGY REPORT (SQ) ---
EXAM DESCRIPTION: MRI RT LOWER JOINT WITH COMPLETED DATE/TIME: 10/04/2017 3:08 pm REASON FOR STUDY: M25.551 PAIN IN RIGHT HIP M25.551 PAIN IN RIGHT HIP COMPARISON: 11/21/2016 TECHNIQUE: Post arthrogram imaging is performed using T1 and T1 and T2 fat saturated sequences of th e pelvis and specific hip of interest. LIMITATIONS: Patient motion. Artifact from tubal ligation clips. FINDINGS: JOINT DISTENSION: Adequate. No loose body. BONE MARROW: No edema. No marrow replacement. FEMORAL HEAD, NECK, AND ACETABULUM: No occult fracture. No osteophytes or subchondral cysts. Normal s phericity of femoral head/neck junction. No acetabular dysplasia. No evidence of femoroacetabular imp ingement. PUBIC RAMI AND ISCHIUM: No occult fracture. SACRUM AND GERA: SI joints normal in signal. No occult fracture. EFFUSIONS: None. LABRUM AND CARTILAGE: Intact. MUSCLES AND SOFT TISSUES: Adductors and piriformis normal. Abductors and greater trochanteric bursa n ormal without edema or fluid. Iliopsoas bursa without fluid. Hamstring attachments without edema or t ear. PELVIC SOFT TISSUES: No masses or adenopathy. SCIATIC NERVE: Identified without masses. OTHER: No other significant finding. IMPRESSION: No acute findings in the right hip. TECHNICAL DOCUMENTATION: JOB ID: [id number] [employer]- All Rights Reserved
== END ==
LOC: RAD 12:31
PROVIDERS: ATTEND Internal Medicine
PROC: BQ01ZZZ Plain Radiography of Left Hip (ICD-10-PCS; principal; 2017-10-04)
DX: M25.551 Pain in right hip (principal)
CPT/HCPCS: 73722; 77002; 27095; A9576; J3490

== ENCOUNTER 2018-02-02 16:58 | Emergency (ER) | payer SELFPAY ==
[2018-02-02] MEDS ORDERED: RINGERS SOLUTION,LACTATED 1,000 ML IV ONE (17:25)
--- NOTE | 2018-02-02 17:28 | ER Document Report ---
ED Medical Screen (RME) - General Chief Complaint: Abscess Stated Complaint: FACIAL PAIN Time Seen by Provider: 02/02/18 17:21 Notes: RAPID MEDICAL EVALUATION DISCLOSURE I have seen this patient as part of a Rapid Medical Evaluation and, if applicable, placed any initially appropriate orders. The patient will be seen and fully evaluated, including a full history and physical exam, by a provider ( in Main ED or Fast Track) when a room becomes available. 43-year-old female here with complaints of a "spider bite" to her left cheek that she suffered several days ago. She did not actually see the spider. Since then, she has had some reported redness pain to the left cheek area and "can taste the infection go down my throat". She also reports that she has vomiting up "the infection" and describes it as brown and green in color. In the past 1 day, she has started to have some minimal to mild left eye pain with movement and blurry vision. EXAM There is a 4 x 4 centimeter area of superficial ulceration to the left cheek No active drainage visualized externally, or intraorally Extraocular movements intact Tachycardic TRAVEL OUTSIDE OF THE [place] IN LAST 30 DAYS: No - Related Data Allergies/Adverse Reactions: tramadol [Tramadol] Allergy (Verified 12/20/16 08:57) Seizures hydrocodone bitartrate [From Vicodin] Adverse Reaction (Verified 12/20/16 08:57) Hives Past Medical History - Past Medical History Cardiac Medical History: Denies: Hx Atrial Fibrillation, Hx Coronary Artery Disease, Hx Heart Attack, Hx Hypertension Pulmonary Medical History: Denies: Hx Asthma, Hx Bronchitis, Hx COPD, Hx Pneumonia Neurological Medical History: Reports: Hx Migraine, Hx Seizures - LAST SEIZURE 1 YR AGO. Denies: Hx Cerebrovascular Accident Endocrine Medical History: Reports: Hx Hypothyroidism. Denies: Hx Diabetes Mellitus Type 1, Hx Diabetes Mellitus Type 2 Renal/ Medical History: Denies: Hx Peritoneal Dialysis GI Medical History: Reports: Hx Gastroesophageal Reflux Disease Musculoskeltal Medical History: Denies Hx Arthritis Psychiatric Medical History: Reports: Hx Depression Past Surgical History: Reports: Hx Cholecystectomy - 07/08/12, Hx Tubal Ligation. Denies: Hx Pacemaker - Immunizations Hx Diphtheria, Pertussis, Tetanus Vaccination: Yes Physical Exam - Vital signs Vitals: Temp Pulse Resp BP Pulse Ox 98.7 F 112 H 16 106/69 99 02/02/18 17:12 02/02/18 17:12 02/02/18 17:12 02/02/18 17:12 02/02/18 17:12 Course - Vital Signs Vital signs: Temp Pulse Resp BP Pulse Ox 98.7 F 112 H 16 106/69 99 02/02/18 17:12 02/02/18 17:12 02/02/18 17:12 02/02/18 17:12 02/02/18 17:12
[2018-02-02 18:12] LABS: ABSOLUTE EOSINOPHILS # (AUTO) 0.2 10^3/uL (0.0-0.6); ABSOLUTE LYMPHOCYTES (AUTO) 1.6 10^3/uL (0.5-4.7); ABSOLUTE MONOCYTES (AUTO) 0.6 10^3/uL (0.1-1.4); ABSOLUTE NEUT (AUTO) 4.3 10^3/uL (1.7-8.2); BASOPHILS % (AUTO) 0.6 % (0-2); EOSINOPHILS % (AUTO) 2.6 % (0-6); HEMATOCRIT 33.3 % (36.0-47.0); HEMOGLOBIN 11.1 g/dL (12.0-15.5); LYMPHOCYTES % (AUTO) 24.2 % (13-45); MEAN CORPUSCULAR HEMOGLOBIN 27.3 pg (27.0-33.4); MEAN CORPUSCULAR HGB CONC 33.3 g/dL (32.0-36.0); MEAN CORPUSCULAR VOLUME 82 fl (80-97); PLATELET COUNT 375 10^3/uL (150-450); RED BLOOD COUNT 4.07 10^6/uL (3.72-5.28); RED CELL DISTRIBUTION WIDTH 14.6 % (11.5-14.0); SEGMENTED NEUTROPHILS % (AUTO) 63.6 % (42-78); TOTAL CELLS COUNTED % (AUTO) 100 %; WHITE BLOOD COUNT 6.7 10^3/uL (4.0-10.5)
[2018-02-02 18:24] LABS: ANION GAP 11 (5-19); BLOOD UREA NITROGEN 14 mg/dL (7-20); CALCIUM 9.7 mg/dL (8.4-10.2); CARBON DIOXIDE 29 mmol/L (22-30); CHLORIDE 101 mmol/L (98-107); GLUCOSE 113 mg/dL (75-110); POTASSIUM 3.8 mmol/L (3.6-5.0); SODIUM 141.1 mmol/L (137-145)
[2018-02-02] MEDS ORDERED: CEPHALEXIN 500 MG CAPSULE PO ONE (18:42)
[2018-02-02] MEDS ORDERED: SULFAMETHOXAZOLE/TRIMETHOPRIM 800-160 MG TABLET PO ONE (18:42)
[2018-02-02] MEDS ORDERED: ONDANSETRON 4 MG TAB.RAPDIS PO ONE (18:43)
[2018-02-02] MEDS ORDERED: ONDANSETRON ODT 4 MG TAB (6 TAB/ER DISP) PO PRN (18:43)
--- NOTE | 2018-02-02 18:47 | ER Document Report ---
ED General - General Chief Complaint: Abscess Stated Complaint: FACIAL PAIN Time Seen by Provider: 02/02/18 17:21 Notes: Patient is a 43-year-old female with a past medical history of epilepsy who presents with 3 days of a facial rash and swelling. Patient reports that the area started as a small pustule on her central left cheek. She reports that the area opened and has now developed a wound with associated surrounding erythema. She describes the areas having a burning, constant, aching pain. Touching the area worsens the pain. Nothing improves the pain. She denies history of similar symptoms in the past. She states she believes this may have started as a result of a spider bite although she did never witnessed her stop being bitten by a spider. She has not seen her primary doctor regarding today' s concerns. She denies any associated fever or constitutional symptoms. TRAVEL OUTSIDE OF THE [place] IN LAST 30 DAYS: No - Related Data Allergies/Adverse Reactions: tramadol [Tramadol] Allergy (Verified 12/20/16 08:57) Seizures hydrocodone bitartrate [From Vicodin] Adverse Reaction (Verified 12/20/16 08:57) Hives Past Medical History - General Information source: Patient - Social History Smoking Status: Never Smoker Frequency of alcohol use: None Drug Abuse: None Lives with: Spouse/Significant other Family History: Reviewed & Not Pertinent Patient has suicidal ideation: No Patient has homicidal ideation: No - Past Medical History Cardiac Medical History: Denies: Hx Atrial Fibrillation, Hx Coronary Artery Disease, Hx Heart Attack, Hx Hypertension Pulmonary Medical History: Denies: Hx Asthma, Hx Bronchitis, Hx COPD, Hx Pneumonia Neurological Medical History: Reports: Hx Migraine, Hx Seizures - LAST SEIZURE 1 YR AGO. Denies: Hx Cerebrovascular Accident Endocrine Medical History: Reports: Hx Hypothyroidism. Denies: Hx Diabetes Mellitus Type 1, Hx Diabetes Mellitus Type 2 Renal/ Medical History: Denies: Hx Peritoneal Dialysis GI Medical History: Reports: Hx Gastroesophageal Reflux Disease Musculoskeltal Medical History: Denies Hx Arthritis Psychiatric Medical History: Reports: Hx Depression Past Surgical History: Reports: Hx Cholecystectomy - 07/08/12, Hx Orthopedic Surgery - left hip tendon repair, Hx Tubal Ligation. Denies: Hx Pacemaker - Immunizations Hx Diphtheria, Pertussis, Tetanus Vaccination: Yes Review of Systems - Review of Systems Notes: Constitutional: Negative for fever. HENT: Negative for sore throat. Eyes: Negative for visual changes. Cardiovascular: Negative for chest pain. Respiratory: Negative for shortness of breath. Gastrointestinal: Negative for abdominal pain, vomiting or diarrhea. Genitourinary: Negative for dysuria. Musculoskeletal: Negative for back pain. Skin: Positive for rash. Neurological: Negative for headaches, weakness or numbness. 10 point ROS negative except as marked above and in HPI. Physical Exam - Vital signs Vitals: Temp Pulse Resp BP Pulse Ox 98.7 F 112 H 16 106/69 99 02/02/18 17:12 02/02/18 17:12 02/02/18 17:12 02/02/18 17:12 02/02/18 17:12 Interpretation: Tachycardic Notes: PHYSICAL EXAMINATION: GENERAL: Well-appearing, well-nourished and in no acute distress. HEAD: Atraumatic, normocephalic. EYES: Pupils equal round and reactive to light, extraocular movements intact, sclera anicteric, conjunctiva are normal. ENT: nares patent, oropharynx clear without exudates. Moist mucous membranes. NECK: Normal range of motion, supple without lymphadenopathy LUNGS: Breath sounds clear to auscultation bilaterally and equal. No wheezes rales or rhonchi. HEART: Regular rate and rhythm without murmurs ABDOMEN: Soft, nontender, normoactive bowel sounds. No guarding, no rebound. No masses appreciated. EXTREMITIES: Normal range of motion, no pitting or edema. No cyanosis. NEUROLOGICAL: No focal neurological deficits. Moves all extremities spontaneously and on command. PSYCH: Normal mood, normal affect. SKIN: Warm, Dry, normal turgor, there is a 2 x 2 centimeter area of skin erosion on the left central cheek with surrounding erythema extending just below the left eye and down across the left cheek. There is small areas of streaking redness across the left sternocleidomastoid Course - Re-evaluation Re-evalutation: 02/02/18 18:46 Presentation of a well-appearing 43-year-old woman with a wound on left right mid cheek with surrounding area of cellulitis that extends to just below the left orbital socket and extends down to the left mid neck. There is no significant edema or any areas of fluctuance with the area of cellulitis to suggest an underlying abscess. Patient has full extraocular motions bilaterally , no proptosis, visual acuity 20/20 at the bedside. No evidence to suggest an orbital cellulitis at this time point. Labs unremarkable. CT of the face obtained in triage and has been reviewed without any notable findings. Patient has had some purulent drainage from the wound on the face and will therefore be covered for both MRSA as well as strep with cephalexin as well as trimethoprim sulfamethoxazole. At this time will discharge with return precautions and follow-up recommendations. Verbal discharge instructions given a the bedside and opportunity for questions given. Medication warnings reviewed. Patient is in agreement with this plan and has verbalized understanding of return precautions and the need for primary care follow-up in the next 24-48 hours. - Vital Signs Vital signs: Temp Pulse Resp BP Pulse Ox 98.2 F 86 18 112/67 100 02/02/18 20:13 02/02/18 20:13 02/02/18 20:13 02/02/18 20:13 02/02/18 20:13 - Laboratory Result Diagrams: 02/02/18 17:50 02/02/18 17:50 Laboratory results interpreted by me: 02/02/18 02/02/18 17:50 17:50 Hgb 11.1 L Hct 33.3 L RDW 14.6 H Glucose 113 H - Diagnostic Test Radiology reviewed: Image reviewed, Reports reviewed Radiology results interpreted by me: 02/02/18 18:[address]: No evidence of an underlying soft tissue abscess on the right Discharge - Discharge Clinical Impression: Facial cellulitis, Periorbital cellulitis of left eye Wound, open, face Qualifiers: Encounter type: initial encounter Qualified Code(s): S01.80XA - Unspecified open wound of other part of head, initial encounter Condition: Good Disposition: HOME, SELF-CARE Additional Instructions: The rash is likely due to infection of your skin. You need to take the antibiotics as prescribed. Do not stop even if the rash goes away until you have completed all the antibiotics. You should also return if you develop fevers with temperature greater than 101, you notice progression of the rash or the wound, you develop right eye pain, you develop persistent vomiting, worsening pain, or have any other symptoms that are concerning to you. Please follow-up with your primary doctor within the next 48 hours for a recheck of the wound and associated cellulitis. Prescriptions: Cephalexin Monohydrate [Keflex 500 mg Capsule] 500 mg PO Q6H 7 Days capsule Sulfamethoxazole/Trimethoprim [Bactrim Ds Tablet] 1 tab PO BID #14 tablet
--- NOTE | 2018-02-02 19:34 | RADIOLOGY REPORT (SQ) ---
EXAM DESCRIPTION: CT FACIAL AREA WITH COMPLETED DATE/TIME: 02/02/2018 6:26 pm REASON FOR STUDY: L facial cellulitis w eye pain. Pain on the left jawline. COMPARISON: Noncontrast CT facial bones 08/03/2011. TECHNIQUE: Post contrast images through the facial bones and orbits windowed for bone and soft tissu e. Additional coronal and sagittal reconstructed images reviewed. All images stored on PACS. All CT scanners at this facility use dose modulation, iterative reconstruction, and/or weight based d osing when appropriate to reduce radiation dose to as low as reasonably achievable (ALARA). [facility]: Dose Right [facility]: CareDose [facility]: Dose Right [facility]: Teradose 4D [facility]: [employer] CONTRAST TYPE AND DOSE: 75 mL Isovue 370- low osmolar. RENAL FUNCTION: None required. The patient is less than 50 years old. RADIATION DOSE: . LIMITATIONS: There is streak artifact from the dental amalgam. FINDINGS: FACIAL BONES: No acute fracture. ORBITS: Intact. Symmetric intact globes and retroorbital soft tissues. PARANASAL SINUSES: Mild mucosal thickening at the maxillary sinuses. No air-fluid levels. SOFT TISSUES: Mild soft tissue swelling overlying the left zygoma. No organized fluid collection to suggest abscess formation. INFERIOR BRAIN: Limited view. No acute findings. IMPRESSION: Mild soft tissue swelling overlying the left zygoma. Otherwise, no acute findings. TECHNICAL DOCUMENTATION: JOB ID: [id number] CT-64 Quality ID # [id number]: Final reports with documentation of one or more dose reduction techniques (e.g., Au tomated exposure control, adjustment of the mA and/or kV according to patient size, use of iterative reconstruction technique) 2010 [employer]- All Rights Reserved Reading location - IP/workstation name: [email or web address]
[2018-02-02 20:15] VITALS: BP 112/67
== END 2018-02-02 20:14 | disposition home or self-care (01) ==
LOC: ER 16:58
DX: S01.80XA Unspecified open wound of other part of head, initial encounter (principal); R51 Headache; L03.213 Periorbital cellulitis; B96.89 Other specified bacterial agents as the cause of diseases classified elsewhere; L03.211 Cellulitis of face
CPT/HCPCS: 99283; 36415; 87040; 85025; 80048; 70487; S0119; J7120

== ENCOUNTER 2018-06-06 18:17 | Emergency (ER) | payer SELFPAY ==
[2018-06-06] MEDS ORDERED: CEPHALEXIN 500 MG CAPSULE PO ONE (18:37)
[2018-06-06] MEDS ORDERED: KETOROLAC TROMETHAMINE 60 MG/2 ML SDV IM ONE (18:37)
[2018-06-06] MEDS ORDERED: SULFAMETHOXAZOLE/TRIMETHOPRIM 800-160 MG TABLET PO ONE (18:37)
[2018-06-06] MEDS ORDERED: LEVETIRACETAM 500 MG TABLET PO ONE (18:37)
--- NOTE | 2018-06-06 18:43 | ER Document Report ---
ED General - General Chief Complaint: Probable Seizure Stated Complaint: POSSIBLE SEIZURE Time Seen by Provider: 06/06/18 18:25 Notes: Patient is a 43-year-old female with a past medical history of epilepsy, currently off all medications for the past 1-2 months who presents with multiple seizures over the past 48 hours. She states that these are her typical seizures and she has a history of recurrent seizures particularly when she is off of her medications. At time of arrival she denies any focal neurologic deficits, headache, fever or constitutional symptoms. Denies any injury during any of these episodes. She has not been able to get her medications due to the cost of Keppra. The patient does also complain of some mild ongoing discomfort to the left side of her face which I saw her for back in January when there was a much more prominent infection. She notes that there is still sometimes drains a small amount of purulent drainage although notes that overall is well-healed at this time point. She has not seen her general doctor regarding these concerns. She denies any fever or constitutional symptoms. She states she otherwise feels quite well at this time point. TRAVEL OUTSIDE OF THE [place] IN LAST 30 DAYS: No - Related Data Allergies/Adverse Reactions: tramadol [Tramadol] Allergy (Verified 06/06/18 18:34) Seizures hydrocodone bitartrate [From Vicodin] Adverse Reaction (Verified 06/06/18 18:34) Hives Past Medical History - General Information source: Patient - Social History Smoking Status: Never Smoker Frequency of alcohol use: None Drug Abuse: None Lives with: Family Family History: Reviewed & Not Pertinent Patient has suicidal ideation: No Patient has homicidal ideation: No - Past Medical History Cardiac Medical History: Denies: Hx Atrial Fibrillation, Hx Coronary Artery Disease, Hx Heart Attack, Hx Hypertension Pulmonary Medical History: Denies: Hx Asthma, Hx Bronchitis, Hx COPD, Hx Pneumonia Neurological Medical History: Reports: Hx Migraine, Hx Seizures - LAST SEIZURE 1 YR AGO. Denies: Hx Cerebrovascular Accident Endocrine Medical History: Reports: Hx Hypothyroidism. Denies: Hx Diabetes Mellitus Type 1, Hx Diabetes Mellitus Type 2 Renal/ Medical History: Denies: Hx Peritoneal Dialysis GI Medical History: Reports: Hx Gastroesophageal Reflux Disease Musculoskeletal Medical History: Denies Hx Arthritis Psychiatric Medical History: Reports: Hx Depression Past Surgical History: Reports: Hx Cholecystectomy - 07/08/12, Hx Orthopedic Surgery - left hip tendon repair, Hx Tubal Ligation. Denies: Hx Pacemaker - Immunizations Hx Diphtheria, Pertussis, Tetanus Vaccination: Yes Review of Systems - Review of Systems Notes: Constitutional: Negative for fever. HENT: Negative for sore throat. Eyes: Negative for visual changes. Cardiovascular: Negative for chest pain. Respiratory: Negative for shortness of breath. Gastrointestinal: Negative for abdominal pain, vomiting or diarrhea. Genitourinary: Negative for dysuria. Musculoskeletal: Negative for back pain. Skin: Positive for left facial irritation Neurological: Positive for recurrent seizures 10 point ROS negative except as marked above and in HPI. Physical Exam - Vital signs Interpretation: Normal Notes: PHYSICAL EXAMINATION: GENERAL: Well-appearing, well-nourished and in no acute distress. HEAD: Atraumatic, normocephalic. EYES: Pupils equal round and reactive to light, extraocular movements intact, sclera anicteric, conjunctiva are normal. ENT: nares patent, oropharynx clear without exudates. Moist mucous membranes. NECK: Normal range of motion, supple without lymphadenopathy LUNGS: Breath sounds clear to auscultation bilaterally and equal. No wheezes rales or rhonchi. HEART: Regular rate and rhythm without murmurs ABDOMEN: Soft, nontender, normoactive bowel sounds. No guarding, no rebound. No masses appreciated. EXTREMITIES: Normal range of motion, no pitting or edema. No cyanosis. NEUROLOGICAL: Face symmetric. Tongue protrudes midline. Extraocular motions intact. Pupils are 2 mm and equally reactive. Normal speech, normal gait. 5 out of 5 strength in both the distal and proximal upper and lower extremities bilaterally. Sensation is grossly intact throughout. Finger to nose testing normal. Pronator drift normal. PSYCH: Normal mood, normal affect. SKIN: Warm, Dry, normal turgor, there is a mild area of darkening of skin over the left lateral maxillary sinus without any significant pain on palpation. No erythema or warmth. No induration or fluctuance. Course - Re-evaluation Re-evalutation: 06/06/18 18:38 Presentation of well-appearing patient after having a seizure. She reports that she has had several seizures in the past 24-48 hours. Patient has a known history of seizures. Patient has not taken her medication in almost 1 month the most probable source of her seizures. The patient has returned to baseline without intervention. No focal neurologic deficits. No infectious symptoms, vital sign abnormalities, or evidence of trauma. No indication for laboratories or imaging based on reassuring evaluation and known history of seizures. I did see the patient approximately 4 months ago for facial infection. She reports that this has almost completely healed but still reports some intermittent discharge from the location of the facial infection that is not new or different today. She states while she is here today she was wondering if she can receive a dose of antibiotics and a prescription for an additional course as she feels like she needed a longer course of antibiotics completely clear the infection. On examination there is some mild induration the area, no fluctuance, erythema or warmth to the area. I have represcribed an additional week of antibiotics the area to see if this does resolve the patient's symptoms. I have prescribed the patient 2 months of Keppra, I have informed her that it is only $14 at [facility] with a good Rx coupon and have instructed her on how to use this. At this time will discharge with return precautions and follow-up recommendations. Verbal discharge instructions given a the bedside and opportunity for questions given. Medication warnings reviewed. Patient is in agreement with this plan and has verbalized understanding of return precautions and the need for primary care follow-up in the next 24-72 hours. Discharge - Discharge Clinical Impression: Seizures, Facial pain Condition: Good Disposition: HOME, SELF-CARE Additional Instructions: Today you had a seizure. It is very important that you do not engage in any activities that could result in severe injury should you have a seizure. Specifically, do not drive a vehicle, go into a body of water, take a bath, climb ladders, or operate any heavy machinery until you have been cleared by your neurologist. Please return to the ED immediately if you have multiple seizures close together, develop a severe headache, weakness, numbness, difficulty speaking, have a seizure in which you do not return to normal within 1 hour of the seizure, or have any other symptoms that are concerning to you. Prescriptions: Cephalexin Monohydrate [Keflex 500 mg Capsule] 500 mg PO Q6H 7 Days capsule Levetiracetam [Keppra 500 mg Tablet] 500 mg PO Q12 #60 tablet Levetiracetam [Keppra 500 mg Tablet] 500 mg PO Q12 #6 tablet Sulfamethoxazole/Trimethoprim [Bactrim Ds Tablet] 1 tab PO BID #14 tab
[2018-06-06 19:18] VITALS: BP 115/71
== END 2018-06-06 20:24 | disposition home or self-care (01) ==
LOC: ER 18:17
DX: G40.909 Epilepsy, unspecified, not intractable, without status epilepticus (principal); T42.6X6A Underdosing of other antiepileptic and sedative-hypnotic drugs, initial encounter; Z91.120 Patient's intentional underdosing of medication regimen due to financial hardship; Z91.14 Patient's other noncompliance with medication regimen; L08.9 Local infection of the skin and subcutaneous tissue, unspecified; R51 Headache; Z88.5 Allergy status to narcotic agent
CPT/HCPCS: 96372; 99284

== ENCOUNTER 2018-10-09 01:55 | Emergency (ER) | payer SELFPAY ==
[2018-10-09 02:04] VITALS: BP 103/79
[2018-10-09] MEDS ORDERED: CEPHALEXIN 500 MG CAPSULE PO ONE (04:03)
[2018-10-09] MEDS ORDERED: SULFAMETHOXAZOLE/TRIMETHOPRIM 800-160 MG TABLET PO ONE (04:03)
[2018-10-09] MEDS ORDERED: IBUPROFEN 600 MG TABLET PO ONE (04:04)
--- NOTE | 2018-10-09 04:28 | ER Document Report ---
HPI - HPI Patient complains to provider of: rash right face Time Seen by Provider: 10/09/18 03:12 Pain Level: 5 Context: Patient is a 43-year-old female presents to the emergency department for a generalized rash to the right side of her face. Patient states she has had an intermittent rash on her face, arms and legs for "years now." Patient states she is typically treated with antibiotics and the rash typically resolves but then comes back in another part of her body. Patient does admit to picking at the wounds. Patient also admits to past IV drug abuse. Patient denies any lower back pain, loss of bowel or bladder, urinary retention. Patient states the wound on the right side of her face had begun to hurt which is why she Presents to the emergency room. Past medical history: Seizures Medication: Keppra Allergies: Tramadol, Vicodin - REPRODUCTIVE Reproductive: DENIES: : - DERM Skin Color: Other Past Medical History - General Information source: Patient - Social History Smoking Status: Current Every Day Smoker Family History: Reviewed & Not Pertinent Patient has suicidal ideation: No Patient has homicidal ideation: No - Past Medical History Cardiac Medical History: Denies: Hx Atrial Fibrillation, Hx Coronary Artery Disease, Hx Heart Attack, Hx Hypertension Pulmonary Medical History: Denies: Hx Asthma, Hx Bronchitis, Hx COPD, Hx Pneumonia Neurological Medical History: Reports: Hx Migraine, Hx Seizures - LAST SEIZURE 1 YR AGO. Denies: Hx Cerebrovascular Accident Endocrine Medical History: Reports: Hx Hypothyroidism. Denies: Hx Diabetes Mellitus Type 1, Hx Diabetes Mellitus Type 2 Renal/ Medical History: Denies: Hx Peritoneal Dialysis GI Medical History: Reports: Hx Gastroesophageal Reflux Disease Musculoskeletal Medical History: Denies Hx Arthritis Psychiatric Medical History: Reports: Hx Depression Past Surgical History: Reports: Hx Cholecystectomy - 07/08/12, Hx Orthopedic Surgery - left hip tendon repair, Hx Tubal Ligation. Denies: Hx Pacemaker - Immunizations Hx Diphtheria, Pertussis, Tetanus Vaccination: Yes Vertical Provider Document - CONSTITUTIONAL Agree With Documented VS: Yes Notes: GENERAL: Alert, interacts well. No acute distress. Patient very fidgety in the bed. HEAD: Normocephalic, atraumatic. EYES: Pupils equal, round, and reactive to light. Extraocular movements intact. ENT: Oral mucosa moist, tongue midline. NECK: Full range of motion. Supple. Trachea midline. LUNGS: Clear to auscultation bilaterally, no wheezes, rales, or rhonchi. No respiratory distress. HEART: Regular rate and rhythm. No murmur ABDOMEN: Soft, non-tender. Non-distended. Bowel sounds present in all 4 quadrants. EXTREMITIES: Moves all 4 extremities spontaneously. No edema, normal radial and dorsalis pedis pulses bilaterally. No cyanosis. BACK: no cervical, thoracic, lumbar midline tenderness. No saddle anesthesia, normal distal neurovascular exam. NEUROLOGICAL: Alert and oriented x3. Normal speech. cranial nerves II through XII grossly intact PSYCH: Normal affect, normal mood. SKIN: Warm, dry, normal turgor. 1 cm x 1 cm area of erythema with obvious purulent discharge noted at the center noted to the patient's right chin. 2 cm x 2 cm area of erythema noted to the patient's right cheek to the right of her mouth. No obvious fluctuance or induration noted on that lesion. Patient does have an area of excoriation to the lateral left knee, no surr ounding erythema or cellulitis noted. This wound does not appear infected at this time. - INFECTION CONTROL TRAVEL OUTSIDE OF THE [place] IN LAST 30 DAYS: No Course - Re-evaluation Re-evalutation: 10/09/18 04:26 Patient's wounds do appear to be cellulitic in nature. Will treat with Bactrim and Keflex. Patient's chin wound has obvious discharge. Discussed continued care for open abscess. Wound on patient's right cheek is nonfluctuant, nonindurated at this time. Discussed close follow-up with primary care provider or return to the emergency room. Discussed not picking patient's wounds And to refrain from any cocaine abuse. Patient voices understanding. Patient stable for discharge. - Vital Signs Vital signs: Temp Pulse Resp BP Pulse Ox 99.1 F 129 H 20 103/79 100 10/09/18 02:03 10/09/18 02:03 10/09/18 02:03 10/09/18 02:03 10/09/18 02:03 Discharge - Discharge Clinical Impression: Abscess Cellulitis Qualifiers: Site of cellulitis: face Qualified Code(s): L03.211 - Cellulitis of face Condition: Stable Disposition: HOME, SELF-CARE Instructions: Abscess ([facility]), Cephalexin ([facility]), MRSA Cellulitis ([facility]), Trimethoprim-Sulfa ([facility]) Additional Instructions: As we discussed you have been seen and treated in the emergency department for an infection to the right side of her face. Please take antibiotics as prescribed return to the emergency room for any other concerning symptoms. Prescriptions: Cephalexin Monohydrate [Keflex 500 mg Capsule] 500 mg PO BID 7 Days #14 capsule Sulfamethoxazole/Trimethoprim [Bactrim Ds Tablet] 1 each PO BID 7 Days #14 tablet Referrals: YULIYA ANDRADE MD [Primary Care Provider] - Follow up as needed
== END 2018-10-09 04:42 | disposition home or self-care (01) ==
LOC: ER 01:55
DX: L03.211 Cellulitis of face (principal); F17.200 Nicotine dependence, unspecified, uncomplicated; Z90.49 Acquired absence of other specified parts of digestive tract; Z98.51 Tubal ligation status
CPT/HCPCS: 99283

== ENCOUNTER 2018-10-10 11:56 | Emergency (ER) | payer SELFPAY ==
[2018-10-10] MEDS ORDERED: ONDANSETRON 4 MG TAB.RAPDIS PO ONE (13:00)
[2018-10-10] MEDS ORDERED: NORMAL SALINE 1000 ML 1,000 ML IV ONE (13:00)
--- NOTE | 2018-10-10 13:02 | ER Document Report ---
ED Medical Screen (RME) - General Chief Complaint: Sore Throat Stated Complaint: FEVER Time Seen by Provider: 10/10/18 12:53 Mode of Arrival: Wheelchair Information source: Patient Notes: 43-year-old female with a history of seizures, hypothyroidism, chronic pain NC room with fever, right facial swelling, weakness, low blood pressure and complaints of fainting in the waiting room. Patient is retching in triage. TRAVEL OUTSIDE OF THE [place] IN LAST 30 DAYS: No - Related Data Allergies/Adverse Reactions: tramadol [Tramadol] Allergy (Verified 06/06/18 18:34) Seizures hydrocodone bitartrate [From Vicodin] Adverse Reaction (Verified 06/06/18 18:34) Hives Past Medical History - Social History Frequency of alcohol use: None Drug Abuse: None - Past Medical History Cardiac Medical History: Denies: Hx Atrial Fibrillation, Hx Coronary Artery Disease, Hx Heart Attack, Hx Hypertension Pulmonary Medical History: Denies: Hx Asthma, Hx Bronchitis, Hx COPD, Hx Pneumonia Neurological Medical History: Reports: Hx Migraine, Hx Seizures - LAST SEIZURE 1 YR AGO. Denies: Hx Cerebrovascular Accident Endocrine Medical History: Reports: Hx Hypothyroidism. Denies: Hx Diabetes Mellitus Type 1, Hx Diabetes Mellitus Type 2 Renal/ Medical History: Denies: Hx Peritoneal Dialysis GI Medical History: Reports: Hx Gastroesophageal Reflux Disease Musculoskeltal Medical History: Denies Hx Arthritis Psychiatric Medical History: Reports: Hx Attention Deficit Hyperactivity Disorder, Hx Depression Past Surgical History: Reports: Hx Cholecystectomy - 07/08/12, Hx Orthopedic Surgery - left hip tendon repair, Hx Tubal Ligation. Denies: Hx Pacemaker - Immunizations Hx Diphtheria, Pertussis, Tetanus Vaccination: Yes Physical Exam - Vital signs Vitals: Temp Pulse Resp BP Pulse Ox 99.2 F 109 H 20 109/63 100 10/10/18 12:11 10/10/18 12:11 10/10/18 12:11 10/10/18 12:11 10/10/18 12:11 Course - Vital Signs Vital signs: Temp Pulse Resp BP Pulse Ox 99.2 F 109 H 20 109/63 100 10/10/18 12:11 10/10/18 12:11 10/10/18 12:11 10/10/18 12:11 10/10/18 12:11 Doctor's Discharge - Discharge Referrals: YULIYA ANDRADE MD [Primary Care Provider] - Follow up as needed
[2018-10-10 13:25] LABS: ABSOLUTE BASOPHILS # (AUTO) 0.1 10^3/uL (0.0-0.2); ABSOLUTE EOSINOPHILS # (AUTO) 0.2 10^3/uL (0.0-0.6); ABSOLUTE LYMPHOCYTES (AUTO) 1.4 10^3/uL (0.5-4.7); ABSOLUTE NEUT (AUTO) 8.9 10^3/uL (1.7-8.2); BASOPHILS % (AUTO) 0.5 % (0-2); EOSINOPHILS % (AUTO) 1.3 % (0-6); HEMATOCRIT 30.8 % (36.0-47.0); LYMPHOCYTES % (AUTO) 12.3 % (13-45); MEAN CORPUSCULAR HGB CONC 32.6 g/dL (32.0-36.0); MEAN CORPUSCULAR VOLUME 77 fl (80-97); MONOCYTES % (AUTO) 8.3 % (3-13); PLATELET COUNT 331 10^3/uL (150-450); RED BLOOD COUNT 4.02 10^6/uL (3.72-5.28); RED CELL DISTRIBUTION WIDTH 15.3 % (11.5-14.0); SEGMENTED NEUTROPHILS % (AUTO) 77.6 % (42-78); TOTAL CELLS COUNTED % (AUTO) 100 %; WHITE BLOOD COUNT 11.5 10^3/uL (4.0-10.5)
[2018-10-10 13:44] LABS: ALANINE AMINOTRANSFERASE 16 U/L (9-52); ALBUMIN 4.7 g/dL (3.5-5.0); ALKALINE PHOSPHATASE 65 U/L (38-126); ANION GAP 11 (5-19); ASPARTATE AMINO TRANSFERASE 24 U/L (14-36); BILIRUBIN,DIRECT 0.2 mg/dL (0.0-0.4); BILIRUBIN,TOTAL 0.3 mg/dL (0.2-1.3); BLOOD UREA NITROGEN 9 mg/dL (7-20); CALCIUM 9.3 mg/dL (8.4-10.2); CARBON DIOXIDE 27 mmol/L (22-30); CHLORIDE 102 mmol/L (98-107); GLUCOSE 93 mg/dL (75-110); POTASSIUM 5.1 mmol/L (3.6-5.0); SODIUM 139.8 mmol/L (137-145); TOTAL PROTEIN 7.6 g/dL (6.3-8.2)
[2018-10-10] MEDS ORDERED: KETOROLAC TROMETHAMINE INJ/PF 30 MG/1 ML SDV IV ONE (14:54)
[2018-10-10] MEDS ORDERED: CEFTRIAXONE 1 GM/D5W RTU 1 GM/50 ML RTUPB IV ONE (14:54)
--- NOTE | 2018-10-10 14:57 | ER Document Report ---
Addendum entered and electronically signed by BRIANA SILVA PA-C 10/10/18 17:09: Procedures - Incision and Drainage Right Face Time completed: 16:35 Type: Simple Anesthetic type: 1% Lidocaine mL's of anesthetic: 4 Blade size: 11 I&D procedure: Iodoform packing placed, Other - chlorhexadine/saline Incision Method: Incision made by scalpel - smaller incision as it is on the face Amount/type of drainage: moderate purulent Original Note: ED General - General Chief Complaint: Sore Throat Stated Complaint: FEVER Time Seen by Provider: 10/10/18 12:53 Mode of Arrival: Wheelchair TRAVEL OUTSIDE OF THE [place] IN LAST 30 DAYS: No - HPI Notes: Patient is a 43-year-old female with a history of seizures, hypothyroidism, chronic pain (under pain management) who presents to the emergency department complaining of a red painful area to her right chin that she believes may be infectious as well as subjective fever and throat pain. Patient states that she was here yesterday morning and was sent home on Bactrim and Keflex. Patient states that she has had continued pain and discomfort since then. Patient states that she took 4 pills of her medicines and is questioning why she her sym ptoms are still present. Patient states that she does have some intermittent nausea and states that she felt lightheaded in the waiting room, but did not have a complete loss of consciousness or true fainting. Patient states that she has had lesions/infection like this for previous times this past year and does not also understand why if she was treated with antibiotic site that did not kill the entire infection in her body for them not to recur again. She is otherwise able to eat and drink and has requested a meal. She is urinating normally and having normal bowel movements. No other concerns or complaints. Denies any headache, head injury, changes in vision/speech/mentation/hearing, URI, chest pain, palpitations, syncope, cough, shortness of breath, wheeze, dyspnea, abdominal pain, nausea/vomiting/diarrhea, urinary retention, dysuria, hematuria, loss of control of bowel or bladder, numbness/tingling, saddle anesthesia, muscle paralysis/weakness. Pt has adamantly denied any drug abuse or IV drug abuse to me. Reading the last providers note she did admit to IV drug abuse. I did review her chart and noticed that she has had cocaine abuse as well as possible overdose of opiods when she came in with altered mental status last year. - Related Data Allergies/Adverse Reactions: tramadol [Tramadol] Allergy (Verified 06/06/18 18:34) Seizures hydrocodone bitartrate [From Vicodin] Adverse Reaction (Verified 06/06/18 18:34) Hives Past Medical History - General Information source: Patient - Social History Smoking Status: Never Smoker Frequency of alcohol use: None Drug Abuse: None Family History: Reviewed & Not Pertinent Patient has suicidal ideation: No Patient has homicidal ideation: No - Past Medical History Cardiac Medical History: Denies: Hx Atrial Fibrillation, Hx Coronary Artery Disease, Hx Heart Attack, Hx Hypertension Pulmonary Medical History: Denies: Hx Asthma, Hx Bronchitis, Hx COPD, Hx Pneumonia Neurological Medical History: Reports: Hx Migraine, Hx Seizures - LAST SEIZURE 1 YR AGO. Denies: Hx Cerebrovascular Accident Endocrine Medical History: Reports: Hx Hypothyroidism. Denies: Hx Diabetes Mellitus Type 1, Hx Diabetes Mellitus Type 2 Renal/ Medical History: Denies: Hx Peritoneal Dialysis GI Medical History: Reports: Hx Gastroesophageal Reflux Disease Musculoskeletal Medical History: Denies Hx Arthritis Psychiatric Medical History: Reports: Hx Attention Deficit Hyperactivity Disorder, Hx Depression Past Surgical History: Reports: Hx Cholecystectomy - 07/08/12, Hx Orthopedic Surgery - left hip tendon repair, Hx Tubal Ligation. Denies: Hx Pacemaker - Immunizations Hx Diphtheria, Pertussis, Tetanus Vaccination: Yes Review of Systems - Review of Systems -: Yes All other systems reviewed and negative Physical Exam - Vital signs Vitals: Temp Pulse Resp BP Pulse Ox 99.2 F 109 H 20 109/63 100 10/10/18 12:11 10/10/18 12:11 10/10/18 12:11 10/10/18 12:11 10/10/18 12:11 - Notes Notes: PHYSICAL EXAMINATION: GENERAL: Well-appearing, well-nourished and in no acute distress. A&Ox4. A nswers questions appropriately. Moves comfortably w/o notable distress HEAD: Atraumatic, normocephalic. EYES: Pupils equal round and reactive to light, extraocular movements intact, sclera anicteric, conjunctiva are normal. ENT: Nares patent and with clear discharge. oropharynx mild erythema without exudates. No tonsilar hypertrophy without erythema or exudate. No palatine shift. Uvula midline. No tongue protrusion. No drooling, hoarseness, or airway compromise. Moist mucous membranes. No sinus tenderness. Face: there is an erythemic indurated area approx 2cm diameter that is tender w/o obvious fluctuance. No streaks or discharge. There is another keratotic lesion to the rt cheek that is non-tender. NECK: Normal range of motion, supple without lymphadenopathy. No rigidity /meningismus. LUNGS: Breath sounds clear to auscultation bilaterally and equal. No wheezes rales or rhonchi. No retractions HEART: Regular rate and rhythm without murmurs, rubs, gallops. ABDOMEN: Soft, nontender, nondistended abdomen. No guarding, no rebound. No masses appreciated. Normal bowel sounds present. No CVA tenderness bilaterally. No hepatosplenomegaly. NEUROLOGICAL: Normal speech, normal gait. Normal sensory, motor exams PSYCH: Normal mood, normal affect. SKIN: see above. Pt has multiple other skin cummings where she was picking at her skin and has scars to her extremities. Course - Re-evaluation Re-evalutation: 10/10/18 16:41 Patient is an afebrile, well-hydrated, 43-year-old female who presents to the emergency department with an abscess to her right chin. Vitals are acceptable without any significant tachycardia, tachypnea, or hypoxia. PE is otherwise unremarkable. CT scan showed abscess and cellulitic tissue. CBC shows a mildly elevated white count. She is otherwise nontoxic appearing is tolerating p.o. without difficulty. Incision and drainage was performed successfully without any complications and packing was placed. Patient tolerated the procedure well. Wound culture was obtained. Patient is already on Keflex and Bactrim. No further labs or imaging warranted. Low suspicion for any sepsis, Ricardo's, meningitis, severe dehydration, airway compromise, or other systemic emergent condition at this time. Recheck with your PCM/AT in 2-3 days for wound recheck. Return to the ED with any other worsening/concerning symptoms as needed. Patient is in agreement. Patient was also given Rocephin and Toradol. - Vital Signs Vital signs: Temp Pulse Resp BP Pulse Ox 99.2 F 109 H 20 109/63 100 10/10/18 12:11 10/10/18 12:11 10/10/18 12:11 10/10/18 12:11 10/10/18 12:11 - Laboratory Result Diagrams: 10/10/18 13:20 10/10/18 13:20 Laboratory results interpreted by me: 10/10/18 10/10/18 13:20 13:20 WBC 11.5 H Hgb 10.0 L Hct 30.8 L MCV 77 L MCH 25.0 L RDW 15.3 H Lymphocytes % 12.3 L Absolute Neutrophils 8.9 H Potassium 5.1 H Discharge - Discharge Clinical Impression: Abscess Condition: Stable Disposition: HOME, SELF-CARE Instructions: Post Incision and Drainage, Abscess ([facility]) Additional Instructions: Do not shower or bathe for 24 hours. After 24 hours you may shower but no submersion of the wound under water. Keep the original dressing on the wound for 24 hours unless the drainage soaks through. Change the dressing daily thereafter and use a small amount of triple antibiotic ointment over the open wound. See your PCM/ED in 2-3 days for recheck and continue direction for wound packing. Monitor for any signs of worsening pain or redness, streaks, and/or fever. Return to the ED if noticing any of the above symptoms or as needed. Take medications as directed. Referrals: YULIYA ANDRADE MD [Primary Care Provider] - Follow up as needed BRIA PELAYO MD [ACTIVE STAFF] - Follow up as needed
--- NOTE | 2018-10-10 15:11 | RADIOLOGY REPORT (SQ) ---
EXAM DESCRIPTION: CT FACIAL AREA WITH COMPLETED DATE/TIME: 10/10/2018 2:41 pm REASON FOR STUDY: right facial swelling COMPARISON: 02/02/2018 TECHNIQUE: Post contrast images through the facial bones and orbits windowed for bone and soft tissu e. Additional coronal and sagittal reconstructed images reviewed. All images stored on PACS. All CT scanners at this facility use dose modulation, iterative reconstruction, and/or weight based d osing when appropriate to reduce radiation dose to as low as reasonably achievable (ALARA). [facility]: Dose Right [facility]: CareDose [facility]: Dose Right [facility]: Teradose 4D [facility]: [employer] CONTRAST TYPE AND DOSE: contrast/concentration: Isovue 350.00 mg/ml; Total Contrast Delivered: 74.0 ml; Total Saline Delivered: 52.0 ml RENAL FUNCTION: None required. The patient is less than 50 years old. RADIATION DOSE: CT Rad equipment meets quality standard of care and radiation dose reduction techniq ues were employed. CTDIvol: 6.2 mGy. DLP: 148 mGy-cm. . LIMITATIONS: None. FINDINGS: FACIAL BONES: No fracture or bone lesion. ORBITS: Intact. No fracture. Symmetric intact globes and retroorbital soft tissues. PARANASAL SINUSES: Mild mucoperiosteal changes in the maxillary sinuses and in some of the ethmoid ai r cells. No nasal polyps. Maxillary sinus outlets are patent. SOFT TISSUES: There is soft tissue swelling adjacent to the mandible on the right. On image 65 there is a 10 mm well-circumscribed low-density area within this. INFERIOR BRAIN: Limited view. No acute findings. OTHER: No other significant finding. IMPRESSION: Facial soft tissue swelling with what appears to be a small abscess in the subcutaneous tissues. No dental abscess is seen. TECHNICAL DOCUMENTATION: JOB ID: [id number] Quality ID # [id number]: Final reports with documentation of one or more dose reduction techniques (e.g., Au tomated exposure control, adjustment of the mA and/or kV according to patient size, use of iterative reconstruction technique) 2010 [employer]- All Rights Reserved Reading location - IP/workstation name: [email or web address]
[2018-10-10] MEDS ORDERED: LIDOCAINE 1% INJ-PF (10 MG/ML) 30 ML SDV INJ ONE (15:43)
[2018-10-10 20:10] VITALS: BP 98/63
== END 2018-10-10 20:09 | disposition home or self-care (01) ==
LOC: ER 11:56
DX: L02.01 Cutaneous abscess of face (principal); L03.211 Cellulitis of face; G89.29 Other chronic pain; R11.0 Nausea; R42 Dizziness and giddiness; J02.9 Acute pharyngitis, unspecified; R09.89 Other specified symptoms and signs involving the circulatory and respiratory systems; L90.5 Scar conditions and fibrosis of skin; Z88.5 Allergy status to narcotic agent
CPT/HCPCS: 99283; 96361; 96375; 96365; 36415; 87070; 87205; 85025; 87075; 87077; 80053; 87186; 70487; 10060; A6266; S0119; J1885; J0696; J7030

== ENCOUNTER 2018-11-30 17:27 | Emergency (ER) | payer SELFPAY ==
--- NOTE | 2018-11-30 19:38 | ER Document Report ---
ED Medical Screen (RME) - General Chief Complaint: Abscess Stated Complaint: POSSIBLE ABSCESS Time Seen by Provider: 11/30/18 19:36 Primary Care Provider: YULIYA ANDRADE MD [Primary Care Provider] - Follow up as needed Mode of Arrival: Ambulatory Information source: Patient TRAVEL OUTSIDE OF THE [place] IN LAST 30 DAYS: No - HPI Patient complains to provider of: abscess Onset: Other - pt with abscess L shoulder area that has been getting larger and more red and painful - Related Data Allergies/Adverse Reactions: tramadol [Tramadol] Allergy (Verified 06/06/18 18:34) Seizures hydrocodone bitartrate [From Vicodin] Adverse Reaction (Verified 06/06/18 18:34) Hives Past Medical History - Past Medical History Cardiac Medical History: Denies: Hx Atrial Fibrillation, Hx Coronary Artery Disease, Hx Heart Attack, Hx Hypertension Pulmonary Medical History: Denies: Hx Asthma, Hx Bronchitis, Hx COPD, Hx Pneumonia Neurological Medical History: Reports: Hx Migraine, Hx Seizures - LAST SEIZURE 1 YR AGO. Denies: Hx Cerebrovascular Accident Endocrine Medical History: Reports: Hx Hypothyroidism. Denies: Hx Diabetes M ellitus Type 1, Hx Diabetes Mellitus Type 2 Renal/ Medical History: Denies: Hx Peritoneal Dialysis GI Medical History: Reports: Hx Gastroesophageal Reflux Disease Musculoskeltal Medical History: Denies Hx Arthritis Psychiatric Medical History: Reports: Hx Attention Deficit Hyperactivity Disorder, Hx Depression Past Surgical History: Reports: Hx Cholecystectomy - 07/08/12, Hx Orthopedic Surgery - left hip tendon repair, Hx Tubal Ligation. Denies: Hx Pacemaker - Immunizations Hx Diphtheria, Pertussis, Tetanus Vaccination: Yes Physical Exam - Vital signs Vitals: Temp Pulse Resp BP Pulse Ox 98.6 F 122 H 16 119/71 100 11/30/18 17:38 11/30/18 17:38 11/30/18 17:38 11/30/18 17:38 11/30/18 17:38 Course - Vital Signs Vital signs: Temp Pulse Resp BP Pulse Ox 98.6 F 122 H 16 119/71 100 11/30/18 17:38 11/30/18 17:38 11/30/18 17:38 11/30/18 17:38 11/30/18 17:38 Doctor's Discharge - Discharge Referrals: YULIYA ANDRADE MD [Primary Care Provider] - Follow up as needed
[2018-11-30 20:23] LABS: ABSOLUTE BASOPHILS # (AUTO) 0.1 10^3/uL (0.0-0.2); ABSOLUTE EOSINOPHILS # (AUTO) 0.2 10^3/uL (0.0-0.6); ABSOLUTE LYMPHOCYTES (AUTO) 2.1 10^3/uL (0.5-4.7); ABSOLUTE MONOCYTES (AUTO) 1.5 10^3/uL (0.1-1.4); ABSOLUTE NEUT (AUTO) 14.8 10^3/uL (1.7-8.2); BASOPHILS % (AUTO) 0.5 % (0-2); HEMATOCRIT 35.9 % (36.0-47.0); HEMOGLOBIN 11.5 g/dL (12.0-15.5); LYMPHOCYTES % (AUTO) 11.1 % (13-45); MEAN CORPUSCULAR HEMOGLOBIN 24.6 pg (27.0-33.4); MEAN CORPUSCULAR VOLUME 77 fl (80-97); MONOCYTES % (AUTO) 7.9 % (3-13); PLATELET COUNT 442 10^3/uL (150-450); RED BLOOD COUNT 4.67 10^6/uL (3.72-5.28); RED CELL DISTRIBUTION WIDTH 17.1 % (11.5-14.0); SEGMENTED NEUTROPHILS % (AUTO) 79.5 % (42-78); TOTAL CELLS COUNTED % (AUTO) 100 %; WHITE BLOOD COUNT 18.7 10^3/uL (4.0-10.5)
[2018-11-30 20:38] LABS: ALANINE AMINOTRANSFERASE 13 U/L (9-52); ALBUMIN 4.4 g/dL (3.5-5.0); ALKALINE PHOSPHATASE 97 U/L (38-126); ANION GAP 14 (5-19); ASPARTATE AMINO TRANSFERASE 24 U/L (14-36); BILIRUBIN,DIRECT 0.2 mg/dL (0.0-0.4); BILIRUBIN,TOTAL 0.4 mg/dL (0.2-1.3); BLOOD UREA NITROGEN 8 mg/dL (7-20); CALCIUM 9.5 mg/dL (8.4-10.2); CARBON DIOXIDE 21 mmol/L (22-30); CHLORIDE 102 mmol/L (98-107); GLUCOSE 98 mg/dL (75-110); POTASSIUM 4.2 mmol/L (3.6-5.0); SODIUM 136.6 mmol/L (137-145); TOTAL PROTEIN 7.9 g/dL (6.3-8.2)
[2018-11-30] MEDS ORDERED: VANCOMYCIN HCL INJ 1000 MG VIAL IV ONE (22:32)
[2018-11-30] MEDS ORDERED: CEFTRIAXONE INJ 1000 MG VIAL IV ONE (22:32)
[2018-11-30] MEDS ORDERED: NORMAL SALINE 1000 ML 1,000 ML IV ONE (22:32)
[2018-11-30] MEDS ORDERED: FENTANYL CITRATE INJ/PF 100 MCG/2 ML AMPUL IV ONE (22:32)
--- NOTE | 2018-12-01 00:26 | RADIOLOGY REPORT (SQ) ---
EXAM DESCRIPTION: CT UPPER EXTREMITY WITH IV CONTRAST COMPLETED DATE/TME: 11/30/2018 22:32 CLINICAL HISTORY: 43 years, Female, left upper back abscess COMPARISON: None. TECHNIQUE: 304 Images stored on PACS. All CT scanners at this facility use dose modulation, iterative reconstruction, and/or weight based dosing when appropriate to reduce radiation dose to as low as reasonably achievable (ALARA). [facility]: Dose Right [facility]: CareDose [facility]: Dose Right [facility]: Teradose 4D [facility]: [employer] LIMITATIONS: None. FINDINGS: Osseous structures are grossly intact. No CT evidence for acute osseous abnormality. The visualized left lung field is clear. There is skin thickening in the posterior supraclavicular region, with underlying subcutaneous edema and inflammation/phlegmon. An approximately 3.0 x 1.8 x 2.1 cm poorly defined superficial fluid collection likely reflects abscess. Inflammatory changes about the adjacent trapezius musculature. IMPRESSION: Soft tissue inflammation and phlegmon in the posterior supraclavicular region, with what is likely small abscess abutting the underlying trapezius musculature. No acute osseous abnormality. TECHNICAL DOCUMENTATION: Quality ID # 436: Final reports with documentation of one or more dose reduction techniques (e.g., Automated exposure control, adjustment of the mA and/or kV according to patient size, use of iterative reconstruction technique) copyright 2011 [employer]- All Rights Reserved
[2018-12-01] MEDS ORDERED: LIDOCAINE 1% INJ-PF (10 MG/ML) 30 ML SDV INJ ONE (01:31)
[2018-12-01] MEDS ORDERED: FENTANYL CITRATE INJ/PF 100 MCG/2 ML AMPUL ONE (02:27)
[2018-12-01] MEDS ORDERED: FENTANYL CITRATE INJ/PF 100 MCG/2 ML AMPUL IV ONE (02:34)
[2018-12-01] MEDS ORDERED: ONDANSETRON HCL INJ/PF 4 MG/2 ML SDV IV ONE (02:34)
--- NOTE | 2018-12-01 03:12 | ER Document Report ---
ED General - General Chief Complaint: Abscess Stated Complaint: POSSIBLE ABSCESS Time Seen by Provider: 11/30/18 19:36 Primary Care Provider: YULIYA ADNRADE MD [Primary Care Provider] - 12/02/18 Mode of Arrival: Ambulatory Notes: Patient presents with complaint of an abscess over her left upper back. Says is been progressive worsening over last several days. She is not currently on antibiotics. Some subjective fevers. No vomiting. 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 She says she has had one previous abscess before and it was on her face. No other complaints at this time. She mentioned in triage that she has had some numbness into her left arm and hand. She says that this is very intermittent. Currently she is not experiencing numbness into her left hand or arm. She denies any weakness into her left hand or arm. TRAVEL OUTSIDE OF THE [place] IN LAST 30 DAYS: No - Related Data Allergies/Adverse Reactions: tramadol [Tramadol] Allergy (Verified 06/06/18 18:34) Seizures hydrocodone bitartrate [From Vicodin] Adverse Reaction (Verified 06/06/18 18:34) Hives Past Medical History - General Information source: Patient - Social History Smoking Status: Unknown if Ever Smoked Frequency of alcohol use: None Drug Abuse: None Family History: Reviewed & Not Pertinent Patient has suicidal ideation: No Patient has homicidal ideation: No - Past Medical History Cardiac Medical History: Denies: Hx Atrial Fibrillation, Hx Coronary Artery Disease, Hx Heart Attack, Hx Hypertension Pulmonary Medical History: Denies: Hx Asthma, Hx Bronchitis, Hx COPD, Hx Pneumonia Neurological Medical History: Reports: Hx Migraine, Hx Seizures - LAST SEIZURE 1 YR AGO. Denies: Hx Cerebrovascular Accident Endocrine Medical History: Reports: Hx Hypothyroidism. Denies: Hx Diabetes Mellitus Type 1, Hx Diabetes Mellitus Type 2 Renal/ Medical History: Denies: Hx Peritoneal Dialysis GI Medical History: Reports: Hx Gastroesophageal Reflux Disease Musculoskeletal Medical History: Denies Hx Arthritis Psychiatric Medical History: Reports: Hx Attention Deficit Hyperactivity Disorder, Hx Depression Past Surgical History: Reports: Hx Cholecystectomy - 07/08/12, Hx Orthopedic Surgery - left hip tendon repair, Hx Tubal Ligation. Denies: Hx Pacemaker - Immunizations Hx Diphtheria, Pertussis, Tetanus Vaccination: Yes Review of Systems - Review of Systems Notes: My Normal Review Basic REVIEW OF SYSTEMS: CONSTITUTIONAL : Denies fever, chills, or sweats. Denies recent illness. SKIN: Abscess left upper back NEUROLOGICAL: Denies altered mental status or loss of consciousness. ALL OTHER SYSTEMS REVIEWED AND NEGATIVE. Physical Exam - Vital signs Vitals: Temp Pulse Resp BP Pulse Ox 99.4 F 106 H 17 138/79 H 100 11/30/18 17:27 11/30/18 17:27 11/30/18 17:27 11/30/18 17:27 11/30/18 17:27 - Notes Notes: General Appearance: Well nourished, alert, cooperative, no acute distress, moderate obvious discomfort. Well-appearing. Vitals: reviewed, See vital signs table. Extremities: Good strength in left upper extremity., good pulses in all extremities, no swelling or tenderness in the extremities, no edema. Skin: Approximate 5 cm abscess over the left upper back. Appears to be subcutaneous. It has already partially opened on its own with some purulent drainage. Colitis is localized to the abscess itself. Neuro: speech clear, oriented x 3, normal affect, responds appropriately to questions. Course - Re-evaluation Re-evalutation: 12/01/18 05:03 I did clean the abscess with Betadine. Anesthetized with lidocaine. I then incised the abscess. Is able to express approximately 5 mL's of purulent drainage. I then packed the abscess with Betadine gauze. Patient encouraged to follow-up with your doctor return to ER in 2 days to recheck the abscess. She is placed on antibiotics. She clinically otherwise looks well. Patient agrees with plan will be discharged home. She strongly encouraged to return to ER if she is spreading redness, increasing drainage, fevers, or feels unwell. Dictation of this chart was performed using voice recognition software; therefore, there may be some unintended grammatical errors. - Vital Signs Vital signs: Temp Pulse Resp BP Pulse Ox 99.4 F 106 H 17 138/79 H 100 12/01/18 03:31 12/01/18 03:31 12/01/18 03:31 12/01/18 03:31 12/01/18 03:31 - Laboratory Result Diagrams: 11/30/18 19:50 11/30/18 19:50 Laboratory results interpreted by me: 11/30/18 11/30/18 19:50 19:50 WBC 18.7 H Hgb 11.5 L Hct 35.9 L MCV 77 L MCH 24.6 L RDW 17.1 H Seg Neutrophils % 79.5 H Lymphocytes % 11.1 L Absolute Neutrophils 14.8 H Absolute Monocytes 1.5 H Sodium 136.6 L Carbon Dioxide 21 L Procedures - Incision and Drainage Left Upper Back Type: Simple Anesthetic type: 1% Lidocaine mL's of anesthetic: 4 Blade size: 11 I&D procedure: Betadine prep applied Incision Method: Incision made by scalpel Amount/type of drainage: 5mls of purulent drainage Discharge - Discharge Clinical Impression: Abscess Condition: Good Disposition: HOME, SELF-CARE Additional Instructions: ABSCESS: You have an abscess (boil). This a pus-forming infection, usually due to staph. Some boils may be left to drain on their own, but most require lancing. From the time the tender lump first appears, it may be three or four days before the abscess is ready to jenny. Local heat and rest help at this stage of treatment. An antibiotic may prevent spread of the infection. Once the abscess is opened, packing may be placed into it. This is done so pus is not sealed inside by premature closure of the cavity. The packing will be removed at your follow-up visit or you may be advised to remove it yourself at home. Sometimes this packing must be replaced a few times during healing. The wound will heal with surprisingly little scar. Depending on the size and location of an abscess, healing can take one to four weeks. You may shower and wash the area around the incision site two or three times a day. Antibiotics may be prescribed, but are usually not necessary after an abscess has been drained. If you develop fever, chills, worsening pain, or increasing swelling in the area, call the doctor or return immediately. POST INCISION AND DRAINAGE: You have had an incision made to allow drainage of an abscess. The incision must remain open so that pus and debris can drain from the wound. If the abscess cavity is large, packing is placed. This keeps the tissues from collapsing and trapping pus inside, while the body shrinks the cavity. The packing may need to be replaced every day or two. The physician will instruct you on the packing. Keep a bulky dressing over the area. Replace it if it becomes saturated with blood or pus. Do not disturb the packing (if present). You may shower and cleanse the area with gentle soap and warm water two or three times a day. Local warmth may be soothing, and may promote faster healing. Return if you develop high fever or chills, or if you note spreading redness, increasing swelling, or increasing tenderness. DOXYCYCLINE: Doxycycline (Vibramycin, Doryx) is an antibiotic of the tetracycline family. This type of drug is useful for infections of the respiratory tract and genital tract, and is sometimes used for intestinal infections. Unlike most tetracyclines, doxycycline can be taken with food. It is longer acting, and (usually) less prone to side effects than regular tetracycline. Tetracycline antibiotics can stain immature teeth and SHOULD NOT BE TAKEN BY CHILDREN, NURSING MOTHERS, OR WOMEN. Tetracyclines can make you more prone to sunburn. Abdominal cramping, nausea, and diarrhea are occasional side effects. Women may experience vaginal yeast infections. Call the doctor at once if you develop hives, itching, shortness of breath, or lightheadedness. FOLLOW-UP CARE: Please return to the ER follow-up with your doctor in 2 days for reevaluation of your abscess. Please return to the ER immediately if you have increasing redness or swelling, fevers, or feel that you are worsening in any way. I have prescribed you an antibiotic called doxycycline. Doxycycline will make your skin more sensitive to the sun so please make sure you keep your skin covered or wear sunscreen whenever out in the sun. Prescriptions: RX: Doxycycline Hyclate 100 mg PO BID #14 capsule Forms: Return to Work Referrals: YULIYA ANDRADE MD [Primary Care Provider] - 12/02/18
[2018-12-01 03:28] VITALS: BP 138/79
== END 2018-12-01 03:32 | disposition home or self-care (01) ==
LOC: ER 17:27
DX: L02.212 Cutaneous abscess of back [any part, except buttock and flank] (principal); Z88.6 Allergy status to analgesic agent
CPT/HCPCS: 96376; 99284; 96375; 96365; 96366; 96367; 36415; 87070; 87205; 85025; 87075; 87077; 80053; 87186; 73201; 10060; J3010 ×2; J3490; J0696; J2405; J7030; J3370

== ENCOUNTER 2018-12-02 10:42 | Emergency (ER) | payer SELFPAY ==
[2018-12-02 10:47] VITALS: BP 112/82
--- NOTE | 2018-12-02 11:05 | ER Document Report ---
HPI - HPI Time Seen by Provider: 12/02/18 11:02 Pain Level: 3 Notes: Patient presents today for reevaluation of left shoulder abscess that was lanced on November 30 in the ER. Patient is currently on doxycycline for antibiotic therapy. Has not been seen by her primary care provider. No fevers or chills. Site has been covered with gauze. Denies any shoulder pain, denies any numbness or tingling. Denies fevers, chills, chest pain,palpitations, shortness of breath, dyspnea, nausea, vomiting, diarrhea, abdominal pain, neck pain, weakness, bowel or bladder dysfunction, saddle anesthesia, numbness or tingling in bilateral upper or lower extremities equally, muscle paralysis, weakness in bilateral upper extremities. eating/drinking without issues - REPRODUCTIVE Reproductive: DENIES: : Past Medical History - General Information source: Patient - Social History Smoking Status: Unknown if Ever Smoked Family History: Reviewed & Not Pertinent - Past Medical History Cardiac Medical History: Denies: Hx Atrial Fibrillation, Hx Coronary Artery Disease, Hx Heart Attack, Hx Hypertension Pulmonary Medical History: Denies: Hx Asthma, Hx Bronchitis, Hx COPD, Hx Pneumonia Neurological Medical History: Reports: Hx Migraine, Hx Seizures - LAST SEIZURE 1 YR AGO. Denies: Hx Cerebrovascular Accident Endocrine Medical History: Reports: Hx Hypothyroidism. Denies: Hx Diabetes Mellitus Type 1, Hx Diabetes Mellitus Type 2 Renal/ Medical History: Denies: Hx Peritoneal Dialysis GI Medical History: Reports: Hx Gastroesophageal Reflux Disease Musculoskeletal Medical History: Denies Hx Arthritis Psychiatric Medical History: Reports: Hx Attention Deficit Hyperactivity Disord er, Hx Depression Past Surgical History: Reports: Hx Cholecystectomy - 07/08/12, Hx Orthopedic Surgery - left hip tendon repair, Hx Tubal Ligation. Denies: Hx Pacemaker - Immunizations Hx Diphtheria, Pertussis, Tetanus Vaccination: Yes Vertical Provider Document - CONSTITUTIONAL Agree With Documented VS: Yes Notes: PHYSICAL EXAMINATION: GENERAL: Well-appearing, well-nourished and in no acute distress. HEAD: Atraumatic, normocephalic. EYES: Pupils equal round and reactive to light, extraocular movements intact, conjunctiva are normal. ENT: Nares patent, oropharynx clear without exudates. Moist mucous membranes. NECK: Normal range of motion, supple without lymphadenopathy LUNGS: Breath sounds clear to auscultation bilaterally and equal. No wheezes rales or rhonchi. HEART: Regular rate and rhythm without murmurs ABDOMEN: Soft, nontender, nondistended abdomen. No guarding, no rebound. No masses appreciated. Female : deferred Musculoskeletal: Normal range of motion, no pitting or edema. No cyanosis. NEUROLOGICAL: Cranial nerves grossly intact. Normal speech, normal gait. Normal sensory, motor exams PSYCH: Normal mood, normal affect. SKIN: Warm, Dry, normal turgor, no rashes or lesions noted. Lanced abscess site to left shoulder approximately 3.5 cm x 3.5 cm, noted purulent drainage around abscess site. Area without surrounding erythema, no lymphadenopathy. - INFECTION CONTROL TRAVEL OUTSIDE OF THE [place] IN LAST 30 DAYS: No Course - Re-evaluation Re-evalutation: 12/02/18 11:11 Afebrile, vitals stable aside from slight tachycardia is likely due to pain and in no distress. Patient given verbal consent to remove packing and replace packing to site previous packing removed, high-pressure irrigation with 300mL of normal saline, site packed with 1/4th iodoform. windowpane sterile gauze applied to site. pt tolerated procedure without incident. will add Keflex to antibiotic regimen due to cultures showing gram-positive cocci. Advised to apply warm compress to site 20 minutes on 20 minutes off several times a day. Wound does seem to be healing. Advised to take Tylenol as needed for pain control. After performing a Medical Screening Examination, I estimate there is LOW risk for OPEN FRACTURE, COMPARTMENT SYNDROME, TENDON RUPTURE, ACUTE NEUROVASCULAR INJURY, or RETAINED FOREIGN BODY, thus I consider the discharge disposition reasonable. Also, there is no evidence or peritonitis, sepsis, or toxicity. I have reevaluated this patient multiple times and no significant life threatening changes are noted. The patient and I have discussed the diagnosis and risks, and we agree with discharging home with close follow-up with the understanding that symptoms and presentations can change. We also discussed returning to the Emergency Department immediately if new or worsening symptoms occur. We have discussed the symptoms which are most concerning (e.g., changing or worsening pain, fever, numbness, weakness, cool or painful digits) that necessitate immediate return. 12/02/18 11:22 - Vital Signs Vital signs: Temp Pulse Resp BP Pulse Ox 97.4 F 105 H 16 112/82 100 12/02/18 10:46 12/02/18 10:46 12/02/18 10:46 12/02/18 10:46 12/02/18 10:46 Discharge - Discharge Clinical Impression: Encounter for abscess packing removal, Cellulitis Condition: Stable Disposition: HOME, SELF-CARE Instructions: Abscess ([facility]), Cephalexin ([facility]), Post Incision and Drainage, Cellulitis ([facility]) Additional Instructions: Return in 2-3 days for packing change and reevaluation. Continue taking doxycycline however will add Keflex to antibiotic regimen as to culture of wound shows positive gram cocci advised to apply warm compress to site 20 minutes on 20 minutes off several times a day. apply Heat 20 minutes on 20 minutes off several times a day. If you notice any worsening redness, swelling or drainage follow-up with primary care provider within 24-48 hours. Return immediately for any new or worsening symptoms. Follow up with primary care provider, call tomorrow to make followup appointment. Prescriptions: Cephalexin Monohydrate [Keflex 500 mg Capsule] 500 mg PO Q12 5 Days #20 capsule Forms: Return to Work Referrals: YULIYA ANDRADE MD [Primary Care Provider] - Follow up in 3-5 days (return to ER in 2-3 days for repacking )
== END 2018-12-02 11:35 | disposition home or self-care (01) ==
LOC: ER 10:42
DX: Z48.01 Encounter for change or removal of surgical wound dressing (principal); L02.413 Cutaneous abscess of right upper limb; B96.89 Other specified bacterial agents as the cause of diseases classified elsewhere; L03.90 Cellulitis, unspecified; R00.0 Tachycardia, unspecified
CPT/HCPCS: 99282; A6266

== ENCOUNTER 2018-12-04 16:21 | Emergency (ER) | payer SELFPAY ==
--- NOTE | 2018-12-04 17:45 | ER Document Report ---
HPI - HPI Patient complains to provider of: abscess recheck Time Seen by Provider: 12/04/18 17:20 Onset: Other - 12/02/18 Quality of pain: No pain Pain Level: Denies Context: Presents emergency department for abscess wound recheck from December 02. Patient reports Dr. Richards opened her abscess and packed it. She reports the packing fell out yesterday. She reports site is much better she is feeling a lot better. She reports she is able to lift her arm now without any problems. Denies other symptoms such as fever vomiting diarrhea. She reports she is cleaning it as appropriate and still taking her medications. Associated Symptoms: None Exacerbated by: Denies Relieved by: Denies Similar symptoms previously: No Recently seen / treated by doctor: No - REPRODUCTIVE Reproductive: DENIES: : Past Medical History - General Information source: Patient - Social History Smoking Status: Unknown if Ever Smoked Cigarette use (# per day): No Frequency of alcohol use: None Drug Abuse: None Lives with: Family Family History: Reviewed & Not Pertinent Patient has suicidal ideation: No Patient has homicidal ideation: No - Past Medical History Cardiac Medical History: Denies: Hx Atrial Fibrillation, Hx Coronary Artery Disease, Hx Heart Attack, Hx Hypertension Pulmonary Medical History: Denies: Hx Asthma, Hx Bronchitis, Hx COPD, Hx Pneumonia Neurological Medical History: Reports: Hx Migraine, Hx Seizures - LAST SEIZURE 1 YR AGO. Denies: Hx Cerebrovascular Accident Endocrine Medical History: Reports: Hx Hypothyroidism. Denies: Hx Diabetes Mellitus Type 1, Hx Diabetes Mellitus Type 2 Renal/ Medical History: Denies: Hx Peritoneal Dialysis GI Medical History: Reports: Hx Gastroesophageal Reflux Disease Musculoskeletal Medical History: Denies Hx Arthritis Psychiatric Medical History: Reports: Hx Attention Deficit Hyperactivity Disorder, Hx Depression Past Surgical History: Reports: Hx Cholecystectomy - 07/08/12, Hx Orthopedic Surgery - left hip tendon repair, Hx Tubal Ligation. Denies: Hx Pacemaker - Immunizations Hx Diphtheria, Pertussis, Tetanus Vaccination: Yes Vertical Provider Document - CONSTITUTIONAL Agree With Documented VS: Yes General Appearance: WD/WN, No Apparent Distress - INFECTION CONTROL TRAVEL OUTSIDE OF THE [place] IN LAST 30 DAYS: No - HEENT HEENT: Atraumatic - NECK Neck: Supple - RESPIRATORY Respiratory: No Respiratory Distress - MUSCULOSKELETAL/EXTREMETIES Musculoskeletal/Extremeties: MAEW, FROM, Non-Tender - NEURO Level of Consciousness: Awake, Alert, Appropriate Motor/Sensory: No Motor Deficit - DERM Integumentary: Abscess Adult Front & Back Diagram: 1 - Large open draining abscess. Surrounded with erythema. Patient has pictures on her phone reports it is much better than it was 2 days ago. Course - Re-evaluation Re-evalutation: 12/04/18 Patient was given a ruler to measure erythema around the wound. She was instructed to measure to make sure it is getting smaller and to return if the area gets larger. She verbalized understanding to all instructions. Dictation of this chart was performed using voice recognition software; t herefore, there may be some unintended grammatical errors. - Vital Signs Vital signs: Temp Pulse Resp BP Pulse Ox 97.9 F 105 H 16 108/61 100 12/04/18 16:47 12/04/18 16:47 12/04/18 16:47 12/04/18 16:47 12/04/18 16:47 Discharge - Discharge Clinical Impression: Wound check, abscess Condition: Stable Disposition: HOME, SELF-CARE Instructions: Abscess ([facility]) Additional Instructions: *You have been evaluated for an abscess recheck today *Continue to take medication as prescribed *Monitor the site for signs of increasing infection such as increasing pain, redness, swelling, warmth *Return here for signs of increasing infection, worsening condition, changes, needs Referrals: YULIYA ANDRADE MD [Primary Care Provider] - Follow up in 3-5 days
[2018-12-04 18:30] VITALS: BP 111/64
== END 2018-12-04 18:04 | disposition home or self-care (01) ==
LOC: ER 16:21
DX: L02.414 Cutaneous abscess of left upper limb (principal); Z90.49 Acquired absence of other specified parts of digestive tract; Z98.51 Tubal ligation status
CPT/HCPCS: 99282

== ENCOUNTER → 2020-03-04 | Outpatient (CLI) | payer BC ==
[2020-03-04 11:07] LABS: ABSOLUTE EOSINOPHILS # (AUTO) 0.1 10^3/uL (0.0-0.6); ABSOLUTE LYMPHOCYTES (AUTO) 1.2 10^3/uL (0.5-4.7); ABSOLUTE MONOCYTES (AUTO) 0.4 10^3/uL (0.1-1.4); ABSOLUTE NEUT (AUTO) 4.9 10^3/uL (1.7-8.2); BASOPHILS % (AUTO) 0.5 % (0-2); EOSINOPHILS % (AUTO) 1.3 % (0-6); HEMATOCRIT 31.7 % (36.0-47.0); HEMOGLOBIN 10.4 g/dL (12.0-15.5); LYMPHOCYTES % (AUTO) 18.1 % (13-45); MEAN CORPUSCULAR HEMOGLOBIN 26.8 pg (27.0-33.4); MEAN CORPUSCULAR HGB CONC 32.9 g/dL (32.0-36.0); MEAN CORPUSCULAR VOLUME 81 fl (80-97); MONOCYTES % (AUTO) 5.7 % (3-13); PLATELET COUNT 319 10^3/uL (150-450); RED CELL DISTRIBUTION WIDTH 15.8 % (11.5-14.0); SEGMENTED NEUTROPHILS % (AUTO) 74.4 % (42-78); TOTAL CELLS COUNTED % (AUTO) 100 %; WHITE BLOOD COUNT 6.5 10^3/uL (4.0-10.5)
[2020-03-04 11:19] LABS: ALBUMIN 4.3 g/dL (3.5-5.0); ALKALINE PHOSPHATASE 59 U/L (38-126); ANION GAP 9 (5-19); ASPARTATE AMINO TRANSFERASE 20 U/L (14-36); BILIRUBIN,TOTAL 0.2 mg/dL (0.2-1.3); BLOOD UREA NITROGEN 8 mg/dL (7-20); CARBON DIOXIDE 28 mmol/L (22-30); CHLORIDE 100 mmol/L (98-107); CHOLESTEROL 164.47 mg/dL (0-200); GLUCOSE 98 mg/dL (75-110); TOTAL PROTEIN 7.3 g/dL (6.3-8.2); TRIGLYCERIDES 55 mg/dL (<150)
[2020-03-04 11:30] LABS: DIRECT LDL 98 mg/dL (<100)
== END ==
LOC: OD 09:46
PROVIDERS: ATTEND Family Medicine Geriatric Medicine
DX: E78.5 Hyperlipidemia, unspecified (principal); I10 Essential (primary) hypertension; E03.9 Hypothyroidism, unspecified; Z79.899 Other long term (current) drug therapy
CPT/HCPCS: 36415; 80053; 80061; 82306; 84443; 85025

== ENCOUNTER 2020-03-11 09:19 | Emergency (ER) | payer BC ==
[2020-03-11 09:28] VITALS: BP 120/67
[2020-03-11 10:36] LABS: ABSOLUTE EOSINOPHILS # (AUTO) 0.1 10^3/uL (0.0-0.6); ABSOLUTE LYMPHOCYTES (AUTO) 1.8 10^3/uL (0.5-4.7); ABSOLUTE MONOCYTES (AUTO) 0.7 10^3/uL (0.1-1.4); ABSOLUTE NEUT (AUTO) 5.7 10^3/uL (1.7-8.2); BASOPHILS % (AUTO) 0.5 % (0-2); EOSINOPHILS % (AUTO) 1.1 % (0-6); HEMATOCRIT 30.7 % (36.0-47.0); HEMOGLOBIN 10.3 g/dL (12.0-15.5); LYMPHOCYTES % (AUTO) 21.5 % (13-45); MEAN CORPUSCULAR HGB CONC 33.6 g/dL (32.0-36.0); MEAN CORPUSCULAR VOLUME 80 fl (80-97); MONOCYTES % (AUTO) 8.4 % (3-13); PLATELET COUNT 341 10^3/uL (150-450); RED BLOOD COUNT 3.83 10^6/uL (3.72-5.28); RED CELL DISTRIBUTION WIDTH 15.6 % (11.5-14.0); SEGMENTED NEUTROPHILS % (AUTO) 68.5 % (42-78); TOTAL CELLS COUNTED % (AUTO) 100 %; WHITE BLOOD COUNT 8.3 10^3/uL (4.0-10.5)
[2020-03-11 10:56] LABS: ANION GAP 7 (5-19); BLOOD UREA NITROGEN 13 mg/dL (7-20); CALCIUM 9.2 mg/dL (8.4-10.2); CARBON DIOXIDE 26 mmol/L (22-30); CHLORIDE 102 mmol/L (98-107); GLUCOSE 85 mg/dL (75-110); POTASSIUM 3.6 mmol/L (3.6-5.0)
--- NOTE | 2020-03-11 12:04 | ER Document Report ---
Entered by KENYATTA ALLEN SCRIBE 03/11/20 1018 Acting as scribe for:DARLEEN CLARK MD ED General - General Chief Complaint: Skin Problem Stated Complaint: SKIN PROBLEM Time Seen by Provider: 03/11/20 09:45 Primary Care Provider: YULIYA ANDRADE MD [Primary Care Provider] - Follow up as needed Information source: Patient Notes: This 45 year old female patient presents to the emergency department today with complaints of her skin breaking out on her left shoulder and bilateral forearms. 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 Patient denies pain, fever, or chills. Patient states she has a history of skin problems and outbreaks. Patient reports he has been off her medications due to problems with insurance, but has been able to start taking them again. TRAVEL OUTSIDE OF THE [place] IN LAST 30 DAYS: No - Related Data Allergies/Adverse Reactions: tramadol [Tramadol] Allergy (Verified 03/11/20 09:26) Seizures hydrocodone bitartrate [From Vicodin] Adverse Reaction (Verified 03/11/20 09:26) Hives Home Medications: Synthroid. Resalti. Vitamin D. Ambien. Xanax Past Medical History - General Information source: Patient - Social History Smoking Status: Never Smoker Cigarette use (# per day): No Chew tobacco use (# tins/day): No Frequency of alcohol use: None Family History: Reviewed & Not Pertinent Patient has homicidal ideation: No Neurological Medical History: Reports: Hx Migraine, Hx Seizures - LAST SEIZURE 1 YR AGO Endocrine Medical History: Reports: Hx Hypothyroidism GI Medical History: Reports: Hx Gastroesophageal Reflux Disease Psychiatric Medical History: Reports: Hx Attention Deficit Hyperactivity Disorder, Hx Depression Past Surgical History: Reports: Hx Cholecystectomy - 07/08/12, Hx Orthopedic Surgery - left hip tendon repair, Hx Tubal Ligation - Immunizations Hx Diphtheria, Pertussis, Tetanus Vaccination: Yes Review of Systems - Review of Systems Constitutional: See HPI. denies: Chills, Fever EENT: No symptoms reported Cardiovascular: No symptoms reported Respiratory: No symptoms reported Gastrointestinal: No symptoms reported Genitourinary: No symptoms reported Female Genitourinary: No symptoms reported Musculoskeletal: No symptoms reported Skin: See HPI, Rash Hematologic/Lymphatic: No symptoms reported Neurological/Psychological: No symptoms reported -: Yes All other systems reviewed and negative Physical Exam - Vital signs Vitals: Temp Pulse Resp BP Pulse Ox 98.5 F 86 16 120/67 100 03/11/20 09:24 03/11/20 09:24 03/11/20 09:24 03/11/20 09:24 03/11/20 09:24 - General General appearance: Appears well, Alert - HEENT Head: Normocephalic, Atraumatic Eyes: Normal Pupils: PERRL - Respiratory Respiratory status: No respiratory distress Chest status: Nontender Breath sounds: Normal Chest palpation: Normal - Cardiovascular Rhythm: Regular Heart sounds: Normal auscultation Murmur: No - Abdominal Inspection: Normal Distension: No distension Bowel sounds: Normal Tenderness: Nontender - Extremities General lower extremity: Normal inspection. No: Edema Notes: Denuded skin on the bilateral forearms. No active drainage. Abrasions to the left posterior shoulder and bilateral forearms. - Neurological Neuro grossly intact: Yes Cognition: Normal Orientation: AAOx4 Speech: Normal - Psychological Associated symptoms: Normal affect, Normal mood - Skin Skin Temperature: Warm Skin Moisture: Dry Skin Color: Normal Course - Re-evaluation Re-evalutation: 03/11/20 11:55 Patient resting comfortably not showing distress. - Vital Signs Vital signs: Temp Pulse Resp BP Pulse Ox 98.5 F 86 16 120/67 100 03/11/20 09:24 03/11/20 09:24 03/11/20 09:24 03/11/20 09:24 03/11/20 09:24 03/11/20 11:55 Vital signs stable - Laboratory Result Diagrams: 03/11/20 10:25 03/11/20 10:25 Laboratory results interpreted by me: 03/11/20 03/11/20 10:25 10:25 Hgb 10.3 L Hct 30.7 L RDW 15.6 H Sodium 135.4 L Laboratory results within normal limits. Hemoglobin 10.3 hematocrit 30.7. Discharge - Discharge Clinical Impression: Cellulitis Condition: Stable Disposition: HOME, SELF-CARE Additional Instructions: Cellulitis You have an infection of your skin and underlying soft tissues called cellulitis. This is due to bacteria, which can enter through any break in the skin, or even through an irritated hair follicle. Untreated, cellulitis will usually worsen. Antibiotics are required. Usually, warm packs or warm soaks, and elevation of the infected area are recommended. You should start getting better within 24 to 36 hours. Most infections respond quickly to the right medication. Follow-up care is important, however, to check for abscess (boil) formation, unsuspected foreign body, or resistant infection. If you develop fever, chills, or if the area of infection is becoming rap idly more swollen or painful, call the doctor at once. Prescriptions: Mupirocin [Bactroban 2% Ointment 22 gm] 1 applic TP TID #1 tube Clindamycin HCl 300 mg PO TID #30 capsule Referrals: YULIYA ANDRADE MD [Primary Care Provider] - Follow up as needed I personally performed the services described in the documentation, reviewed and edited the documentation which was dictated to the scribe in my presence, and it accurately records my words and actions.
== END 2020-03-11 12:15 | disposition home or self-care (01) ==
LOC: ER 09:19
DX: L03.114 Cellulitis of left upper limb (principal); L03.113 Cellulitis of right upper limb; Z90.49 Acquired absence of other specified parts of digestive tract
CPT/HCPCS: 36415; 80048; 85025; 99283

== ENCOUNTER 2020-09-25 22:20 | Emergency (ER) | payer BC ==
[2020-09-25] MEDS ORDERED: ASPIRIN 81 MG TABLET, CHEWABLE PO ONE (22:40)
[2020-09-25] MEDS ORDERED: ONDANSETRON 4 MG TAB.RAPDIS PO ONE (22:41)
--- NOTE | 2020-09-25 22:43 | ER Document Report ---
ED Medical Screen (RME) - General Chief Complaint: Chest Pain Stated Complaint: CHEST PAIN/RIGHT SIDE FLANK PAIN Time Seen by Provider: 09/25/20 22:37 Primary Care Provider: YULIYA ANDRADE MD [Primary Care Provider] - Follow up as needed Notes: Patient is a 45-year-old female presents emergency department with a chief complaint of chest pain that started around 6:00 this evening. States it is in the middle of her chest. Patient also has complaints of abdominal pain that comes and goes on the right side of her abdomen. Exam: S1, S2. I have greeted and performed a rapid initial assessment of this patient. A comprehensive ED assessment and evaluation of the patient, analysis of test results and completion of medical decision making process will be conducted by an additional ED providers. TRAVEL OUTSIDE OF THE [place] IN LAST 30 DAYS: No - Related Data Allergies/Adverse Reactions: tramadol [Tramadol] Allergy (Verified 03/11/20 09:26) Seizures hydrocodone bitartrate [From Vicodin] Adverse Reaction (Verified 03/11/20 09:26) Hives Past Medical History - Past Medical History Cardiac Medical History: Denies: Hx Atrial Fibrillation, Hx Coronary Artery Disease, Hx Heart Attack, Hx Hypertension Pulmonary Medical History: Denies: Hx Asthma, Hx Bronchitis, Hx COPD, Hx Pneumonia Neurological Medical History: Reports: Hx Migraine, Hx Seizures - LAST SEIZURE 1 YR AGO. Denies: Hx Cerebrovascular Accident Endocrine Medical History: Reports: Hx Hypothyroidism. Denies: Hx Diabetes Mellitus Type 1, Hx Diabetes Mellitus Type 2 Renal/ Medical History: Denies: Hx Peritoneal Dialysis GI Medical History: Reports: Hx Gastroesophageal Reflux Disease Musculoskeltal Medical History: Denies Hx Arthritis Psychiatric Medical History: Reports: Hx Attention Deficit Hyperactivity Disorder, Hx Depression Past Surgical History: Reports: Hx Cholecystectomy - 07/08/12, Hx Orthopedic Surgery - left hip tendon repair, Hx Tubal Ligation. Denies: Hx Pacemaker - Immunizations Hx Diphtheria, Pertussis, Tetanus Vaccination: Yes Doctor's Discharge - Discharge Referrals: YULIYA ANDRADE MD [Primary Care Provider] - Follow up as needed
[2020-09-25 23:47] LABS: APPEARANCE,URINE CLEAR; BILIRUBIN,URINE NEGATIVE (NEGATIVE); COLOR,URINE STRAW; GLUCOSE, URINE NEGATIVE (NEGATIVE); KETONES,URINE NEGATIVE (NEGATIVE); LEUKOCYTE ESTERASE,URINE LARGE (NEGATIVE); NITRITE,URINE NEGATIVE (NEGATIVE); PROTEIN,URINE NEGATIVE (NEGATIVE); URINE SPECIFIC GRAVITY 1.005; UROBILINOGEN,URINE NEGATIVE mg/dL (<2.0)
[2020-09-26] LABS: ABSOLUTE BASOPHILS # (AUTO) 0.1 10^3/uL (0.0-0.2); ABSOLUTE EOSINOPHILS # (AUTO) 0.2 10^3/uL (0.0-0.6); ABSOLUTE MONOCYTES (AUTO) 0.5 10^3/uL (0.1-1.4); ABSOLUTE NEUT (AUTO) 4.5 10^3/uL (1.7-8.2); BASOPHILS % (AUTO) 1.1 % (0-2); EOSINOPHILS % (AUTO) 2.3 % (0-6); HEMATOCRIT 30.3 % (36.0-47.0); HEMOGLOBIN 10.1 g/dL (12.0-15.5); LYMPHOCYTES % (AUTO) 27.1 % (13-45); MEAN CORPUSCULAR HEMOGLOBIN 26.2 pg (27.0-33.4); MEAN CORPUSCULAR HGB CONC 33.3 g/dL (32.0-36.0); MEAN CORPUSCULAR VOLUME 79 fl (80-97); MONOCYTES % (AUTO) 7.4 % (3-13); PLATELET COUNT 297 10^3/uL (150-450); RED BLOOD COUNT 3.84 10^6/uL (3.72-5.28); RED CELL DISTRIBUTION WIDTH 14.4 % (11.5-14.0); SEGMENTED NEUTROPHILS % (AUTO) 62.1 % (42-78); TOTAL CELLS COUNTED % (AUTO) 100 %; WHITE BLOOD COUNT 7.2 10^3/uL (4.0-10.5)
[2020-09-26 00:01] LABS: ALBUMIN 4.1 g/dL (3.5-5.0); ALKALINE PHOSPHATASE 67 U/L (38-126); ANION GAP 5 (5-19); ASPARTATE AMINO TRANSFERASE 27 U/L (14-36); BILIRUBIN,DIRECT 0.2 mg/dL (0.0-0.4); BILIRUBIN,TOTAL 0.2 mg/dL (0.2-1.3); BLOOD UREA NITROGEN 16 mg/dL (7-20); CALCIUM 8.8 mg/dL (8.4-10.2); CARBON DIOXIDE 30 mmol/L (22-30); CHLORIDE 104 mmol/L (98-107); GLUCOSE 107 mg/dL (75-110); POTASSIUM 3.9 mmol/L (3.6-5.0); TOTAL PROTEIN 7.4 g/dL (6.3-8.2)
--- NOTE | 2020-09-26 01:47 | ER Document Report ---
ED General - General Chief Complaint: Chest Pain Stated Complaint: CHEST PAIN/RIGHT SIDE FLANK PAIN Time Seen by Provider: 09/25/20 22:37 Primary Care Provider: YULIYA ANDRADE MD [Primary Care Provider] - Follow up as needed Mode of Arrival: Wheelchair Information source: Patient Notes: 45-year-old female presented to ED for complaint of chest pain that started abo ut 10 PM. She stated it was in the middle of her chest but she states that the worst pain is to the right side of her abdomen and pelvis. She states she has had pain in her abdomen pelvis for several months with foul-smelling discharge. She states "smells like something called abdomen "she is alert oriented respirations regular nonlabored speaking in full sentences. She does have a history of seizures the last one about a year ago hypothyroid reflux ADHD depression she states she has never had any heart problems has no history of blood pressure cholesterol. She states every time she gets super anxious she gets chest pain in the same way. She states that her landlord threatened to put her out until she got a job and could pay her bills. So he is now agreed to let her stay. Constitutional: Negative for fever. HENT: Negative for sore throat. Eyes: Negative for visual changes. Cardiovascular: States she had chest pain when she came in but has not had any chest pain since she is first came into the emergency room Respiratory: Negative for shortness of breath. Gastrointestinal: Right abdominal pain Genitourinary: States she has purulent drainage that smells foul for the last couple months Musculoskeletal: Negative for back pain. Skin: Negative for rash. Neurological: Negative for headaches, weakness or numbness. 10 point ROS negative except as marked above and in HPI. VITAL SIGNS: Within normal limits. GENERAL: No acute distress, non-toxic appearance. HEAD: Normal with no signs of head trauma. EYES: PERRLA, EOMI, conjunctiva normal, no discharge. EARS: Hearing grossly intact. NOSE: Normal. THROAT: Oropharynx is normal. NECK: Normal range of motion, no tenderness, supple, no lymphadenopathy, No adenopathy, no JVD. CHEST: Clear breath sounds bilaterally. No wheezes, rales, or rhonchi. CARDIAC: Regular rate and rhythm. S1 and S2, without murmurs, gallops, or rubs. VASCULAR: No Edema. Peripheral pulses normal and equal in all extremities. ABDOMEN: Normal bowel sounds soft abdomen with tenderness to bilateral pelvic area. GASTROINTESTINAL: Bowel sounds normal GENITOURINARY: Pelvic tenderness, pelvic exam completed with Glenys Vergara LPN assistance. She did have extremely foul-smelling purulent green drainage. She did have cervical tenderness and tenderness to palpation to both ovaries LYMPATHTIC: No lymphadenopathy noted. MUSCULOSKELETAL: Good range of motion of all major joints. Extremities without clubbing, cyanosis or edema. NEUROLOGICAL: Alert and oriented x 3. No focal sensory or strength deficits. Speech normal. Follows commands appropriately. PSYCHIATRIC: Normal Affect, judgement and mood. SKIN: Normal appearance with no rashes or lesions. TRAVEL OUTSIDE OF THE [place] IN LAST 30 DAYS: No - HPI Onset: Other - She states the chest pain started this evening but she has had it intermittently for the last week and she has had it every time she gets anxious Onset/Duration: Sudden, Gone - Chest pain is gone but she still has the abdomen pelvic pain Quality of pain: Pressure - To the chest, Other - Sharp to the abdomen Severity: Moderate Pain Level: 2 Associated symptoms: Chest pain, Other - Abdominal pain, pelvic pain, pelvic discharge Exacerbated by: Movement Relieved by: Denies Similar symptoms previously: Yes Recently seen / treated by doctor: No - Related Data Allergies/Adverse Reactions: tramadol [Tramadol] Allergy (Verified 03/11/20 09:26) Seizures hydrocodone bitartrate [From Vicodin] Adverse Reaction (Verified 03/11/20 09:26) Hives Past Medical History - General Information source: Patient - Social History Smoking Status: Unknown if Ever Smoked Frequency of alcohol use: None Drug Abuse: None Lives with: Alone Family History: Reviewed & Not Pertinent - Past Medical History Cardiac Medical History: Reports: None Pulmonary Medical History: Reports: None Neurological Medical History: Reports: Hx Migraine, Hx Seizures - LAST SEIZURE 1 YR AGO Endocrine Medical History: Reports: Hx Hypothyroidism Renal/ Medical History: Reports: Hx Pelvic Inflammatory Disease Malignancy Medical History: Reports: None GI Medical History: Reports: Hx Gastroesophageal Reflux Disease Musculoskeletal Medical History: Reports None Skin Medical History: Reports None Psychiatric Medical History: Reports: Hx Attention Deficit Hyperactivity Disorder, Hx Depression, Other - panic attacks Past Surgical History: Reports: Hx Cholecystectomy - 07/08/12, Hx Orthopedic Surgery - left hip tendon repair, Hx Tubal Ligation. Denies: Hx Pacemaker - Immunizations Hx Diphtheria, Pertussis, Tetanus Vaccination: Yes Physical Exam - Vital signs Vitals: Temp Pulse Resp BP Pulse Ox 98.1 F 80 20 116/58 L 98 09/26/20 01:53 09/26/20 01:53 09/26/20 01:53 09/26/20 01:53 09/26/20 01:53 Course - Re-evaluation Re-evalutation: 09/26/20 07:37 Patient was treated with Rocephin and azithromycin for the foul-smelling greenish thick purulent vaginal discharge. She was supposed to wait for her wet mount and urine results but she eloped before I did get the results. She does have bacterial vaginosis. I did leave a message on her answering machine I have also told the culture results nurse and the charge nurse that if she calls back she needs to go to the pharmacy and get her prescription for Flagyl. She did tell the nurse caring for her that her phone was out of order because she did not take Advil but there was a answer machine on the phone number. Prescription was sent to the pharmacy. - Vital Signs Vital signs: Temp Pulse Resp BP Pulse Ox 97.7 F 66 16 110/64 100 09/26/20 04:33 09/26/20 04:33 09/26/20 04:33 09/26/20 04:33 09/26/20 04:33 - Laboratory Results Result Diagrams: 09/25/20 23:27 09/25/20 23:27 Laboratory Results Interpreted: 09/25/20 09/25/20 09/25/20 23:27 23:27 23:27 Hgb 10.1 L Hct 30.3 L MCV 79 L MCH 26.2 L RDW 14.4 H Est GFR (MDRD) Non-Af 53 L Urine Blood SMALL H Ur Leukocyte Esterase LARGE H Critical Laboratory Results Reviewed: No Critical Results - Radiology Results Critical Radiology Results Reviewed: No Critical Results Discharge - Discharge Clinical Impression: Bacterial vaginosis, PID (acute pelvic inflammatory disease) Chest pain Qualifiers: Chest pain type: unspecified Qualified Code(s): R07.9 - Chest pain, unspecified Condition: Stable Disposition: ELOPED Prescriptions: Metronidazole [Flagyl 500 mg Tablet] 500 mg PO BID #20 tablet Referrals: YULIYA ANDRADE MD [Primary Care Provider] - Follow up as needed
--- NOTE | 2020-09-26 02:05 | RADIOLOGY REPORT (SQ) ---
CT abdomen and pelvis without contrast on 09/26/2020 at 1:31 AM CLINICAL INDICATION: Right-sided back pain TECHNIQUE: Multiple axial images are obtained throughout the abdomen and pelvis without the administration of contrast. This exam was performed according to our departmental dose-optimization program, which includes automated exposure control, adjustment of the mA and/or kV according to patient size and/or use of iterative reconstruction technique. Total DLP is 183.44 mGy*cm. COMPARISON: 12/15/2014 FINDINGS: Abdomen: The lung bases are clear. The patient is status post cholecystectomy. There are no renal or ureteral stones and no hydronephrosis. The unenhanced solid abdominal organs are unremarkable. There is no abdominal adenopathy. There is no free fluid or free air within the abdomen. Mild increased stool in the upper colon may represent very mild constipation. The abdominal portion of the GI tract is otherwise unremarkable. Pelvis: Pelvic organs appear unremarkable by CT. Clips from tubal ligation are noted. No free fluid is noted in the pelvis. There is no pelvic adenopathy. The appendix is not definitely visualized but no pericecal inflammatory changes are noted. The pelvic portion of the GI tract is unremarkable. 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 No acute bony at around is noted. IMPRESSION: 1. Mild increased stool in the upper colon may represent very mild constipation. 2. Otherwise essentially unremarkable.
--- NOTE | 2020-09-26 02:06 | RADIOLOGY REPORT (SQ) ---
CHEST X-RAY 2 view on 09/26/2020 at 1:45 AM CLINICAL INDICATION: Chest pain COMPARISON: 12/21/2016 FINDINGS: The lungs are clear. Cardiac, hilar and mediastinal contours are within normal limits. Pulmonary vascularity is within normal limits. No bony abnormality is noted. IMPRESSION: No active disease.
--- NOTE | 2020-09-26 03:05 | RADIOLOGY REPORT (SQ) ---
EXAM DESCRIPTION: US PELVIS TRANSVAGINAL COMPLETED DATE/TME: 09/26/2020 02:34 CLINICAL HISTORY: 45 years Female, You have cervical cancer pelvic pain severe vagina Comparison: CT, same day. Technique: Transvaginal. LIMITATIONS: None. FINDINGS: 8-cm uterus, 0.2-cm endometrial stripe thickness, nabothian cysts, 3.6-cm right ovary, 2.7 x 2.4 x 1.4 cm dominant right follicular cyst within normal limits (no routine follow-up recommended), and 4.3-cm left ovary appear normal in size, shape, echotexture, and vascularity. Trace cul-de-sac fluid. IMPRESSION: Endometrial hypoplasia.
[2020-09-26 04:34] VITALS: BP 110/64
[2020-09-26] MEDS ORDERED: LIDOCAINE 1% INJ-PF (10 MG/ML) 30 ML SDV INJ ONE (05:54)
[2020-09-26] MEDS ORDERED: CEFTRIAXONE INJ 250 MG VIAL IM ONE (05:54)
[2020-09-26] MEDS ORDERED: AZITHROMYCIN 250 MG TABLET PO ONE (05:54)
[2020-09-26] MEDS ORDERED: KETOROLAC TROMETHAMINE INJ/PF 30 MG/1 ML SDV IV ONE (06:01)
[2020-09-26] MEDS ORDERED: KETOROLAC TROMETHAMINE INJ/PF 30 MG/1 ML SDV IM ONE (06:03)
[2020-09-26 06:11] LABS: BACTERIA (WET MOUNT) 4+ BACTERIA SEEN; EPITHELIALS (WET MOUNT) 4+ EPITHELIALS SEEN; RBCS (WET MOUNT) FEW RBCS SEEN; T.VAGINALIS (WET MOUNT) NO TRICHOMONAS SEEN; WBCS (WET MOUNT) 4+ WBCS SEEN; YEAST (WET MOUNT) NO YEAST SEEN
[2020-09-26 07:35] LABS: CHLAM PCR NOT DETECTED (NOT DETECT)
--- NOTE | 2020-09-26 14:47 | EKG REPORT ---
SEVERITY:- NORMAL ECG - SINUS RHYTHM : Confirmed by: Yomi Coronel 26-Sep-2020 14:46:56
== END 2020-09-26 07:00 | disposition left against medical advice (07) ==
LOC: ER 22:20
DX: N73.0 Acute parametritis and pelvic cellulitis (principal); N76.0 Acute vaginitis; B96.89 Other specified bacterial agents as the cause of diseases classified elsewhere; R07.9 Chest pain, unspecified; R10.9 Unspecified abdominal pain; Z90.49 Acquired absence of other specified parts of digestive tract; Z98.51 Tubal ligation status
CPT/HCPCS: 93005; 99285; 96372; 36415; 87210; 83735; 85025; 80053; 81001; 84484; 87491; 87591; 71046; 76830; 93976; 74176; 93010; S0119; J3490; J1885; J0696